=== PATIENT | female | born 1940 | race Caucasian/White ===

== ENCOUNTER 2017-11-07 03:41 | Inpatient (IN) | payer MEDICARE, OTHER ==
[2017-11-07] MEDS ORDERED: diphenhydrAMINE HCL 50 MG/ML VIAL IV ONE (04:04)
[2017-11-07] MEDS ORDERED: ALBUTEROL SULFATE 2.5 MG/0.5 ML VIAL.NEB IH ONE (04:11)
[2017-11-07 04:15] LABS: Hemoglobin 13.7 gm/dL (12.5-16.0); Mean Cell Volume 87.3 fl (78-100); Mean Corpuscular Hemoglobin 28.5 pg (27-31); Mean Corpuscular Hgb Conc 32.6 g/dl (32-36); Mean Platelet Volume 10.4 fl (6.0-9.5); Neutrophil # 6.9 K/mm3 (1.3-6.0); Neutrophil % 87.8 % (42-75.0); Platelet Count 151 K/mm3 (150-450); Red Blood Count 4.81 M/mm3 (4.2-5.4); Red Cell Distribution Width 13.6 % (11.5-14.0); White Blood Count 7.8 K/mm3 (4.0-10.5)
[2017-11-07] MEDS ORDERED: diphenhydrAMINE HCL 50 MG/ML VIAL ONE (04:16)
[2017-11-07] MEDS ORDERED: PROCHLORPERAZINE EDISYLATE 5 MG/ML VIAL ONE (04:21)
[2017-11-07] MEDS ORDERED: PROCHLORPERAZINE EDISYLATE 5 MG/ML VIAL IM ONE (04:21)
[2017-11-07 04:37] LABS: ALT 22 U/L (19-67); AST 17 U/L (0-48); Albumin * 3.7 gm/dl (3.4-5.0); Alkaline Phosphatase * 67 U/L (50-170); Anion Gap 16.1 mmol/L (6.8-13.8); BNP * 353 pg/mL (5-550); Bilirubin, Total 0.8 mg/dL (0.0-1.1); Blood Urea Nitrogen 10 mg/dL (3-23); CRP 0.3 mg/dL (0.0-0.9); Ca. Corrected For Albumin 8.6 mg/dL (8.4-10.2); Calcium * 8.7 mg/dL (7.9-10.9); Carbon Dioxide 26.6 mmol/L (24-32.6); Chloride 104 mmol/L (97-106); Glucose * 156 mg/dL (70-110); Potassium 2.7 mmol/L (3.4-4.6); Sodium 144 mmol/L (132-142); Total Protein 6.5 gm/dL (6.2-8.2); Troponin I Less than 0.017 ng/ml (0.00-0.10)
[2017-11-07] MEDS ORDERED: PROCHLORPERAZINE EDISYLATE 5 MG/ML VIAL IV ONE (05:50)
--- NOTE | 2017-11-07 05:55 | ERNOTE ---
Dyspnea - Date Date of Service: 11/07/17 - General Presenting Symptoms: shortness of breath, difficulty of breathing, wheezing Time Seen by Provider: 11/07/17 03:54 Source: patient Exam Limitations: no limitations - Immun/Allergies/Home Medications Immunizations: IMMUNIZATION HX Immunizations Up to Date No History of Influenza Vaccine Yes Hx Pneumococcal Vaccination Yes Allergies/Adverse Reactions: Allergies diphenhydramine [From Benadryl] Allergy (Severe, Verified 11/07/17 04:24) Other "Out of body experience" chlorpromazine HCl [From Thorazine] Allergy (Unknown, Verified 11/28/14 07:00) hydroxyzine HCl [From Vistaril] Allergy (Unknown, Verified 11/28/14 07:00) hydroxyzine pamoate [From Vistaril] Allergy (Unknown, Verified 11/28/14 07:00) ondansetron HCl [From Zofran (as hydrochloride)] Adverse Reaction (Severe, Verified 12/13/14 17:35) Headache Home Medications: HOME MEDICATIONS Atorvastatin Calcium [Lipitor] 40 mg PO DAILY 08/28/14 [Last Taken 09/06/14 08: 00] Multivitamin [Multi-Vitamin Daily] 1 each PO DAILY 08/28/14 [Last Taken 08:00 1 tab] Propranolol HCl [Inderal LA] 60 mg PO BID 08/28/14 [Last Taken 09/06/14 08:00] LORazepam [Ativan] 0.5 mg PO Q6H PRN 09/07/14 [Last Taken Unknown] Aspirin 325 mg PO DAILY 10/12/14 [Last Taken Unknown] Clopidogrel Bisulfate [Plavix] 75 mg PO DAILY 10/12/14 [Last Taken Unknown] Bisacodyl [Dulcolax] 5 mg PO DAILY 11/28/14 [Last Taken Unknown] Pantoprazole Sodium [Protonix] 40 mg PO DAILY 11/28/14 [Last Taken Unknown] Potassium 08/10/16 [Last Taken Unknown] - History of Present Illness Narrative: patient became sob yesterday with fever and cough Severity: moderate Treatment MIDDLE CARD TENDER: none Initiating event: Reports: upper resp illness Frequency of episodes: Reports: occassional episodes Modifying Factors - (Improves): Reports: rest Modifying Factors (Worsens): Reports: activity Associated Symptoms-Dyspnea: Reports: fever/chills, sweating, cough, wheezing, lightheadedness, weakness Prior Treatment: Reports: recently seen, treated by physician Review of Systems - Narrative Narrative: patient c/o weakness non productive cough - Review of Systems Constitutional: Present: See HPI, weakness, fatigue, malaise EYE: Present: no symptoms reported ENT: Present: nose congestion, nasal drainage Respiratory: Present: See HPI, shortness of breath, cough Cardiology: Present: no symptoms reported Gastrointestinal/Abdominal: Present: no symptoms reported Genitourinary: Present: no symptoms reported Musculoskeletal: Present: no symptoms reported Skin: Present: no symptoms reported Neurological: Present: no symptoms reported Endocrine: Present: no symptoms reported Hematologic/Lymphatic: Present: no symptoms reported Psych: Present: no symptoms reported All Other Systems: All systems neg except as marked - Narrative Narrative: unremarkable - Patient's Past Medical History Patient History - Medical: Anxiety, Arthritis, Depression, GERD, Other Patient History - Cardiac/Respiratory: COPD, Hyperlipidemia Patient History - Cancer: No Hx of Cancer Patient History - Surgical Procedures: Cholecystectomy, Hysterectomy Patient History - Other: None LMP (females 10-50): Menopausal - Family History Family History:: no untoward family reactions to anesthesia, no familial bleeding tendencies, no family history of clotting disorders, no family history of premature - Social History Living Situations: other Abuse History: No History of abuse Psych History: Hx of Anxiety Does anyone smoke in the home?: Yes Smoking Status: Current every day smoker Have you smoked in the past 12 months: Yes Do you dip or chew tobacco: No Patient requests Smoking Cessation Consult: No Initiate information on Smoking Cessation: No Alcohol Use: none Drug Use: none - Immunizations Immunizations Up to Date: No Hx Pneumococcal Vaccination: Yes History of Influenza Vaccine: Yes Physical Exam - Physical Exam General Appearance: Present: moderate distress, anxious Head Exam: Present: normal inspection, no evidence of injury Eye Exam: Normal inspection: bilateral, PERRL: bilateral, EOMI: bilateral Ears, Nose, Throat: Present: normal ENT inspection Neck: Present: normal inspection, nontender Respiratory: Present: respiratory distress, rales, rhonchi, wheezing Cardiovascular/Chest: Present: regular rate, rhythm, no murmur, normal peripheral pulses Peripheral Pulses: N=norm/S=strong/W=weak/B=bound/A=absent: Carotid (R): Normal , Carotid (L): Normal, Radial (R): Normal, Radial (L): Normal, Femoral (R): Normal, Femoral (L): Normal, Dorsalis-pedis (R): Normal, Dorsalis-pedis (L): Normal Gastrointestinal/Abdominal: Present: normal bowel sounds, nontender, nondistended, soft, no organomegaly Back Exam: Present: normal inspection, normal range of motion, no CVA tenderness , no vertebral tenderness Extremity Exam: Present: normal inspection, non-tender, normal range of motion, no edema Neurological Exam: Present: alert, oriented, normal mood/affect, no motor/ sensory deficits DTR: N=norm/NB=norm/brisk/A=abs/DD=dull/dimin/HC=hyperactive: Bicep (R): Normal , Bicep (L): Normal, Tricep (R): Normal, Tricep (L): Normal, Knee (R): Normal, Knee (L): Normal, Ankle (R): Normal, Ankle (L): Normal Skin Exam: Present: normal color, warm/dry Lymphatic Exam: Present: no adenopathy ED Progress - Date and Time Seen: Date and Time: 11/07/17 05:53 condition unchanged - Results and Orders Patient's Lab Results:: I have reviewed the patient's lab results. - Vital Signs Patient's Vital Signs:: I have reviewed the patient's vital signs. Vital Signs: Vital Signs 11/07/17 03:44 Temperature 38.5 C H Pulse Rate 95 Respiratory 18 Rate Blood Pressure 153/71 O2 Sat by Pulse 93 Oximetry - EKG EKG: NSR EKG read: Interp. by me - X-Ray X-Ray #1 X-Ray: chest - lrl pneummonia Interpretation: Interp. by me - Progress/Reassessment Chief Complaint: Dyspnea Progress:: Unchanged - Transfer of Care Expected Disposition: Admit Plan - Plan Plan: to be admitted Departure Clinical Impression: Pneumonia - Departure Disposition: Short Term Hospital w/Plan re Condition: Poor Referrals: Lucio Garza MD [Primary Care Provider] -
[2017-11-07] MEDS: AZITHROMYCIN 500 MG in DEXTROSE 5 % IN WATER 250 ML IV SCH ×2 (06:54)
[2017-11-07] MEDS ORDERED: LORazepam 0.5 MG TABLET PO PRN (08:51)
[2017-11-07] MEDS ORDERED: POTASSIUM CHLORIDE 20 MEQ TABLET.SA PO ONE (08:51)
[2017-11-07] MEDS ORDERED: DILTIAZEM HCL 5 MG/ML VIAL IV ONE ×2 (09:53→10:33)
[2017-11-07] MEDS ORDERED: NORMAL SALINE 1,000 ML IV ONE ×3 (09:54→16:47)
[2017-11-07] MEDS ORDERED: DILTIAZEM HCL 30 MG TABLET PO SCH (10:45)
[2017-11-07] MEDS ORDERED: KETOROLAC TROMETHAMINE 30 MG/ML VIAL IV ONE (11:03)
[2017-11-07 11:18] LABS: TSH * 0.564 uIU/mL (0.358-3.74); Troponin I 0.072 ng/ml (0.00-0.10)
[2017-11-07] MEDS ORDERED: DILTIAZEM HCL 125 MG in DEXTROSE 5 % IN WATER 100 ML IV PRN ×2 (12:28)
[2017-11-07] MEDS ORDERED: LORazepam 2 MG/ML DISP.SYRIN IV ONE (12:29)
[2017-11-07] MEDS ORDERED: LORazepam 2 MG/ML DISP.SYRIN ONE (12:52)
[2017-11-07] MEDS ORDERED: oxyCODONE HCL/ACETAMINOPHEN 1 TAB TABLET PO PRN (13:48)
[2017-11-07] MEDS ORDERED: PROPRANOLOL HCL 60 MG CAPSULE.SA PO SCH (14:00)
[2017-11-07] MEDS: CLOPIDOGREL BISULFATE 75 MG TABLET PO SCH (14:18)
[2017-11-07] MEDS: PANTOPRAZOLE SODIUM 40 MG TABLET.EC PO SCH (14:18)
[2017-11-07] MEDS: PROPRANOLOL HCL 60 MG CAPSULE.SA PO SCH (14:18)
[2017-11-07] MEDS: SENNOSIDES/DOCUSATE SODIUM 1 TAB TABLET PO SCH ×2 (14:19→20:08)
[2017-11-07] MEDS ORDERED: ALBUTEROL SULFATE/IPRATROPIUM 3 ML NEBU IH PRN (15:15)
[2017-11-07] MEDS ORDERED: ALBUTEROL SULFATE/IPRATROPIUM 3 ML NEBU IH ONE (15:15)
[2017-11-07] MEDS ORDERED: NORMAL SALINE 1,000 ML IV PRN (18:26)
[2017-11-07] MEDS ORDERED: NORMAL SALINE 500 ML IV ONE ×2 (19:52→21:10)
[2017-11-07] MEDS ORDERED: LEVALBUTEROL HCL 1.25 MG/3 ML AMPUL IH ONE (19:58)
[2017-11-07] MEDS: ATORVASTATIN CALCIUM 40 MG TABLET PO SCH (20:07)
[2017-11-07] MEDS: oxyCODONE HCL/ACETAMINOPHEN 1 TAB TABLET PO PRN (20:08)
[2017-11-07] MEDS: LEVALBUTEROL HCL 1.25 MG/3 ML AMPUL IH SCH ×2 (20:13→22:37)
[2017-11-07] MEDS ORDERED: LORazepam 2 MG/ML DISP.SYRIN IV SCH (21:00)
[2017-11-07] MEDS ORDERED: NORMAL SALINE 500 ML IV PRN (22:28)
--- NOTE | 2017-11-07 23:46 | HP ---
Chief Complaint - Chief Complaint Date of Service: 11/07/17 Time of Service: 12:12 Chief Complaint: Shortness of breath, cough History of Present Illness: Donna is a 77 yo female with a PMH of COPD who for the past week has had increased shortness of breath and productive sputum cough. She has became weaker, air hungry, and more anxious. Today she presented to the [facility] ER where chest xray showed right middle lobe pneumonia. She denies recent travel or known sick contacts. After being admitted to the floor she was noted to become tachycardiac and go into atrial fibrillation with RVR. - Patient's Past Medical History Patient History - Medical: Anxiety, Arthritis, Depression, GERD Patient History - Cardiac/Respiratory: COPD, Hyperlipidemia Patient History - Cancer: No Hx of Cancer Patient History - Surgical Procedures: Cholecystectomy, Hysterectomy Patient History - Other: None LMP (females 10-50): Menopausal - Family History Family History:: no untoward family reactions to anesthesia, no familial bleeding tendencies, no family history of clotting disorders, no family history of premature - Family History Mother Family History - Medical: , No pertinent hx Family History - Cancer: No pertinent family hx Father Family History - Medical: , No pertinent hx Family History - Cardiac/Respiratory: No pertinent hx Family History - Cancer: Kidney, Prostate - Social History Living Situations: home Abuse History: No History of abuse Psych History: Hx of Anxiety Does anyone smoke in the home?: Yes Smoking Status: Current every day smoker Have you smoked in the past 12 months: Yes Do you dip or chew tobacco: No Patient requests Smoking Cessation Consult: No Initiate information on Smoking Cessation: No Alcohol Use: none Drug Use: none - Immunizations Immunizations Up to Date: No Hx Pneumococcal Vaccination: Yes History of Influenza Vaccine: Yes Review Of Systems (GEN) - Review of Systems Generalized/Overall Review: Present: Weakness, Chills, Malaise, Fatigue. Absent : Fever EENTM: Present: No Symptoms Reported Respiratory: Present: Cough, Shortness of Breath, Wheezing Cardiac: Present: Chest Pain Abdominal: Absent: Nausea, Vomiting Genitourinary: Present: No Symptoms Reported Musculoskeletal: Present: No Symptoms Reported Neurological: Present: No Symptoms Reported Skin: Present: No Symptoms Reported Endocrine: Present: No Symptoms Reported Allergies/Adverse Reactions: Allergies Allergy/AdvReac Type Severity Reaction Status Date / Time diphenhydramine Allergy Severe Other Verified 11/07/17 07:50 [From Benadryl] chlorpromazine HCl Allergy Unknown Verified 11/07/17 07:50 [From Thorazine] hydroxyzine HCl Allergy Unknown Verified 11/07/17 07:50 [From Vistaril] hydroxyzine pamoate Allergy Unknown Verified 11/07/17 07:50 [From Vistaril] ondansetron HCl AdvReac Severe Headache Verified 11/07/17 07:50 [From Zofran (as hydrochloride)] Home Medications: HOME MEDICATIONS Atorvastatin Calcium [Lipitor] 40 mg PO DAILY 08/28/14 [Last Taken 09/06/14 08: 00] Multivitamin [Multi-Vitamin Daily] 1 each PO DAILY 08/28/14 [Last Taken 08:00 1 tab] LORazepam [Ativan] 0.5 mg PO Q3H PRN 09/07/14 [Last Taken Unknown] Aspirin 325 mg PO DAILY 10/12/14 [Last Taken Unknown] Clopidogrel Bisulfate [Plavix] 75 mg PO DAILY 10/12/14 [Last Taken Unknown] Bisacodyl [Dulcolax] 5 mg PO DAILY 11/28/14 [Last Taken Unknown] Pantoprazole Sodium [Protonix] 40 mg PO DAILY 11/28/14 [Last Taken Unknown] Propranolol HCl 60 mg PO BID 11/09/17 [Last Taken Unknown] Exam - Exam Vital Signs: Vital Signs - Last Taken Temp 36.3 C L 11/07/17 22:28 Pulse 61 11/07/17 22:37 Resp 20 11/07/17 22:37 BP 71/48 11/07/17 22:28 Pulse Ox 94 11/07/17 22:37 Constitutional: Present: Alert, Oriented x3, Cooperative ENT Exam: Present: hearing grossly normal Eye Exam: bilateral eye: normal inspection Respiratory: Present: decreased breath sounds, wheezing Cardiovascular/Chest: Present: no murmur, tachycardia, irregularly irregular Abdomen: Present: Normal bowel sounds, soft, nontender, nondistended Skin Exam: Present: normal color, warm/dry, no cyanosis Neurologic: Present: alert, oriented x 3 Thoughts: Present: other - anxious Diagnostic Studies: Abnormal Lab Results 11/07/17 Range/Units 20:10 pO2 52.6 L (83.0-108.0) mmHg HCO3 17.9 L (21.0-28.0) mmol/L Base Excess -8.1 L (-2.0-3.0) mmol/L ABG pH 7.29 L (7.35-7.45) ABG O2 Sat (Measured) 83.4 L (94.0-98.0) % Laboratory Results WBC 7.8 K/mm3 (4.0-10.5) 11/07/17 04:00 RBC 4.81 M/mm3 (4.2-5.4) 11/07/17 04:00 Hgb 13.7 gm/dL (12.5-16.0) 11/07/17 04:00 Hct 42.0 % (37.0-47.0) 11/07/17 04:00 MCV 87.3 fl (78-100) 11/07/17 04:00 MCH 28.5 pg (27-31) 11/07/17 04:00 MCHC 32.6 g/dl (32-36) 11/07/17 04:00 RDW 13.6 % (11.5-14.0) 11/07/17 04:00 Plt Count 151 K/mm3 (150-450) 11/07/17 04:00 MPV 10.4 fl (6.0-9.5) H 11/07/17 04:00 Immature Gran % (Auto) 0.40 % (0.001-0.429) 11/07/17 04:00 Immature Gran # (Auto) 0.03 K/mm3 (0.000-0.0310) 11/07/17 04:00 Neutrophils % 87.8 % (42-75.0) H 11/07/17 04:00 Lymphocytes % 7.2 % (20-51) L 11/07/17 04:00 Monocytes % 3.5 % (0.0-9) 11/07/17 04:00 Eosinophils % 1.0 % (0.0-3.0) 11/07/17 04:00 Basophils % 0.1 % (0.0-1.0) 11/07/17 04:00 Nucleated RBC % 0.0 k/mm3 (0-1) 11/07/17 04:00 Neutrophils # 6.9 K/mm3 (1.3-6.0) H 11/07/17 04:00 Lymphocytes # 0.6 k/mm3 (1.5-3.5) L 11/07/17 04:00 Monocytes # 0.3 k/mm3 (0.0-1.0) 11/07/17 04:00 Eosinophils # 0.1 k/mm3 (0.0-0.7) 11/07/17 04:00 Absolute Basophils 0.0 k/mm3 (0.0-0.1) 11/07/17 04:00 pCO2 38.4 mmHg (32.0-45.0) 11/07/17 20:10 pO2 52.6 mmHg (83.0-108.0) L 11/07/17 20:10 HCO3 17.9 mmol/L (21.0-28.0) L 11/07/17 20:10 Total CO2 19.1 mmol/L (19.0-24.0) 11/07/17 20:10 Base Excess -8.1 mmol/L (-2.0-3.0) L 11/07/17 20:10 ABG pH 7.29 (7.35-7.45) L 11/07/17 20:10 ABG O2 Sat (Measured) 83.4 % (94.0-98.0) L 11/07/17 20:10 Sodium 144 mmol/L (132-142) H 11/07/17 04:00 Plasma Sodium 145 mmol/L (130-142) H 11/07/17 04:00 Potassium 2.7 mmol/L (3.4-4.6) L 11/07/17 04:00 Chloride 104 mmol/L (97-106) 11/07/17 04:00 Carbon Dioxide 26.6 mmol/L (24-32.6) 11/07/17 04:00 Anion Gap 16.1 mmol/L (6.8-13.8) H 11/07/17 04:00 BUN 10 mg/dL (3-23) 11/07/17 04:00 Creatinine 0.77 mg/dL (0.4-1.4) 11/07/17 04:00 Est GFR (Non-Af Amer) 77 mL/min (60-130) 11/07/17 04:00 BUN/Creatinine Ratio 13.0 (9.0-21.6) 11/07/17 04:00 Random Glucose 156 mg/dL (70-110) H 11/07/17 04:00 Lactic Acid, Venous 1.0 mmol/L (0.4-1.9) 11/07/17 04:00 Calcium 8.7 mg/dL (7.9-10.9) 11/07/17 04:00 Calcium Adj for Albumin 8.6 mg/dL (8.4-10.2) 11/07/17 04:00 Total Bilirubin 0.8 mg/dL (0.0-1.1) 11/07/17 04:00 AST 17 U/L (0-48) 11/07/17 04:00 ALT 22 U/L (19-67) 11/07/17 04:00 Alkaline Phosphatase 67 U/L (50-170) 11/07/17 04:00 Troponin I 0.072 ng/ml (0.00-0.10) 11/07/17 10:50 C-Reactive Prot, Quant 0.3 mg/dL (0.0-0.9) 11/07/17 04:00 B-Natriuretic Peptide 353 pg/mL (5-550) 11/07/17 04:00 Total Protein 6.5 gm/dL (6.2-8.2) 11/07/17 04:00 Albumin 3.7 gm/dl (3.4-5.0) 11/07/17 04:00 Procalcitonin 0.06 ng/mL (0.05-0.50) 11/07/17 04:00 TSH 0.564 uIU/mL (0.358-3.74) 11/07/17 10:50 Influenza Type A Ag Negative (NEGATIVE) 11/07/17 04:59 Influenza Type B Ag Negative (NEGATIVE) 11/07/17 04:59 Assessment/Plan - Narrative Narrative: Donna is a 77 yo female with acute respiratory failure secondary to Right middle lobe community acquired pneumonia with COPD exacerbation. She is currently using oxygen via NC at 2lpm. Will treat with rocephin and azithromycin. A lot of patient's dyspnea appears to be anxiety. Will give anxiolytics as needed. Will hold off on prednisone at this time as this may worsen the anxiety. While on the floor patient went into atrial fibrillation with RVR. This is new and felt to be due to pneumonia. She will be given Diltiazem 20mg IV and started on oral diltiazem. May need to continue diltiazem drip and move patient to SCU. Will give Normal saline fluid bolus. - Assessment/Plan (1) Acute respiratory failure with hypoxemia Problem: Acute (2) Atrial fibrillation with RVR Problem: Resolved (3) Pneumonia Problem: Acute (4) COPD exacerbation Problem: Acute
[2017-11-08] MEDS ORDERED: POTASSIUM CHLORIDE 20 MEQ TABLET.SA PO ONE (00:38)
[2017-11-08] MEDS: LORazepam 2 MG/ML DISP.SYRIN IV PRN ×6 (01:03→19:32)
[2017-11-08] MEDS ORDERED: NORMAL SALINE 1,000 ML IV ONE ×2 (01:25)
[2017-11-08] MEDS: LEVALBUTEROL HCL 1.25 MG/3 ML AMPUL IH SCH ×7 (02:10→22:13)
[2017-11-08] MEDS: oxyCODONE HCL/ACETAMINOPHEN 1 TAB TABLET PO PRN ×2 (02:29→21:51)
[2017-11-08] MEDS: NORMAL SALINE 1,000 ML IV PRN (03:07)
--- NOTE | 2017-11-08 05:09 | PN ---
Subjective - Date and Time Seen Date: 11/08/17 Time: 05:30 Subjective Narrative: Pt examined this am. She is very restless and wants to get out of bed. Was transferred to SCU due to A -fib with RVR which could not respond to Diltiazem IVP and needed to be on drip. She was able to convert to NSR, but then became hypotensive. BPs persistently remained in the 60-70s/40s and has required nearly 5.5 L of NS to bring her BP to low 100/50s. O2 titrated from 50-40% fio2 and has been able to keep Pox at 92-95%. Has had urinary output of 400ml with 3.5 L of IVF. Objective - Vitals Vitals: Last Vital Signs Temp 36.4 C L 11/08/17 03:47 Pulse 68 11/08/17 03:47 Resp 22 H 11/08/17 03:47 BP 104/57 11/08/17 03:47 Pulse Ox 97 11/08/17 03:47 - Abnormal Lab Findings Abnormal Lab Findings: Abnormal Lab Results 11/07/17 Range/Units 20:10 pO2 52.6 L (83.0-108.0) mmHg HCO3 17.9 L (21.0-28.0) mmol/L Base Excess -8.1 L (-2.0-3.0) mmol/L ABG pH 7.29 L (7.35-7.45) ABG O2 Sat (Measured) 83.4 L (94.0-98.0) % - Exam Constitutional: Present: Alert, Oriented x3, Other - Restless, Elderly ENT Exam: Present: normal ENT inspection Neck: Present: non-tender, full range of motion, supple Breasts: Present: Exam deferred Respiratory: Present: decreased breath sounds, No rales, No wheezing Cardiovascular/Chest: Present: normal peripheral pulses, regular rate, rhythm, no chest tenderness Abdomen: Present: Normal bowel sounds, soft, nontender /Rectal: Present: Exam deferred Extremity: Present: normal range of motion, non-tender, normal inspection Skin Exam: Present: warm/dry, no cyanosis Lymphatic: Present: no adenopathy Neurologic: Present: no motor/sensory deficits, alert, oriented x 3 Appearance: Present: appropriate appearance, impaired insight Eye contact: Present: compulsive Thoughts: Present: no apparent hallucination, incoherent Cauti Physician Documentation - Urinary Catheter Management Urethral (Mathews) Date of Insertion: 11/07/17 Time of Insertion: 23:50 Assessment/Plan - Problems/Diagnosis (1) Acute respiratory failure with hypoxemia Problem: Acute Narrative: On DOA at the ED, pt was noted to have desaturations to 87-89% requiring oxygen supplementation. ABG while on the floor showed Hypoxemi with PO2 of 52 and O2 Sat of 83.4 on 50 Venti mask. Attempted BIPAP to assist in work of breathing/ ventilation but pt was unable to comply and refused. Left on the Venti mask. Started on scheduled Xopenex treatments. Wean off oxygen as able. Laboratory Tests 11/07/17 20:10 pCO2 38.4 pO2 52.6 L HCO3 17.9 L Total CO2 19.1 Base Excess -8.1 L ABG pH 7.29 L ABG O2 Sat (Measured) 83.4 L (2) Pneumonia Problem: Acute Qualifiers: Laterality: right Lung location: middle lobe of lung Narrative: CXR shows RML consilidation consistent with Pneumonia. Started on Rocephin and Azithromycin. Push cornet q 2 hrs, encourage ambulation. CBC in am (3) COPD exacerbation Problem: Acute Narrative: Has long standing hx of cigarete smoking. diagnosis not known at the time of presentation to our facility, but findings on CXR shows Bilateral Hyperinflation of the lungs- one of the diagnostic of COPD. May likely need home O2 at discharge. Is on Xopenex. (4) Hypotension Problem: Acute Narrative: Hypotension was likely due to iantrogenic complication from Diltiazem. Has required nearly 6 L of IVF due to persistent BPs' of 70/40s. Now in the 90/50s. Mathews inserted for accurate I/O due to hemodynamic instability requiring IV boluses - Urine output 400ml only. (5) Hypokalemia Problem: Acute Narrative: Given K replacment of 80 MeQ. BMP in am. (6) Atrial fibrillation with RVR Problem: Acute Narrative: Went into Afib with RVR in the 180s and required IVP diltiazem, and eventually Diltiazem gtt. She converted to NSR and drip stopped due to hypotension. (7) HLD (hyperlipidemia) Problem: Chronic
[2017-11-08] MEDS: cefTRIAXone SODIUM 1,000 MG in DEXTROSE 5 % IN WATER 50 ML IV SCH ×2 (05:15)
[2017-11-08 05:19] LABS: Hematocrit 35.8 % (37.0-47.0); Hemoglobin 11.5 gm/dL (12.5-16.0); Mean Cell Volume 91.3 fl (78-100); Mean Corpuscular Hemoglobin 29.3 pg (27-31); Mean Corpuscular Hgb Conc 32.1 g/dl (32-36); Mean Platelet Volume 10.6 fl (6.0-9.5); Platelet Count 139 K/mm3 (150-450); Red Blood Count 3.92 M/mm3 (4.2-5.4); Red Cell Distribution Width 14.6 % (11.5-14.0); White Blood Count 12.7 K/mm3 (4.0-10.5)
[2017-11-08 05:23] LABS: Total Cells Counted 100
[2017-11-08 05:27] LABS: Anion Gap 14.4 mmol/L (6.8-13.8); Carbon Dioxide 22.4 mmol/L (24-32.6); Magnesium 1.4 mg/dL (1.2-2.8); Potassium 3.8 mmol/L (3.4-4.6)
[2017-11-08 05:34] LABS: Band 20 % (0-2.0); Lymphocyte 5 % (20-51); Microcytosis Trace; Monocyte 6 % (0-9); Neutrophil 69 % (42-75); Neutrophil # 8.8 K/mm3 (1.3-6.0); Platelet Estimate Decreased (NORMAL)
[2017-11-08] MEDS: AZITHROMYCIN 500 MG in DEXTROSE 5 % IN WATER 250 ML IV SCH ×2 (05:50)
[2017-11-08] MEDS: PANTOPRAZOLE SODIUM 40 MG TABLET.EC PO SCH (07:03)
[2017-11-08] MEDS: PROPRANOLOL HCL 60 MG CAPSULE.SA PO SCH ×2 (09:08→12:51)
[2017-11-08] MEDS: MULTIVITAMINS 1 CAP CAPSULE PO SCH (09:11)
[2017-11-08] MEDS: ASPIRIN 325 MG TABLET.DR PO SCH (09:11)
[2017-11-08] MEDS: CLOPIDOGREL BISULFATE 75 MG TABLET PO SCH (09:12)
[2017-11-08] MEDS ORDERED: FUROSEMIDE 10 MG/ML VIAL ONE (09:26)
[2017-11-08] MEDS ORDERED: FUROSEMIDE 10 MG/ML VIAL IV ONE (09:30)
[2017-11-08] MEDS ORDERED: ACETAMINOPHEN 325 MG TABLET PO PRN (13:10)
[2017-11-08] MEDS ORDERED: DILTIAZEM HCL 5 MG/ML VIAL IV ONE (16:37)
[2017-11-08] MEDS: DILTIAZEM HCL 30 MG TABLET PO SCH (16:59)
[2017-11-08] MEDS: ATORVASTATIN CALCIUM 40 MG TABLET PO SCH (20:00)
[2017-11-08] MEDS: SENNOSIDES/DOCUSATE SODIUM 1 TAB TABLET PO SCH (20:00)
[2017-11-08] MEDS: PROPRANOLOL HCL 20 MG TABLET PO SCH (20:00)
[2017-11-09] MEDS: DILTIAZEM HCL 30 MG TABLET PO SCH ×3 (00:33→16:28)
[2017-11-09] MEDS: NORMAL SALINE 1,000 ML IV PRN (00:35)
[2017-11-09] MEDS: LEVALBUTEROL HCL 1.25 MG/3 ML AMPUL IH SCH ×6 (02:19→22:27)
[2017-11-09] MEDS: LORazepam 2 MG/ML DISP.SYRIN IV PRN ×3 (04:18→15:37)
[2017-11-09 04:59] LABS: Hematocrit 35.4 % (37.0-47.0); Hemoglobin 11.4 gm/dL (12.5-16.0); Mean Cell Volume 90.8 fl (78-100); Mean Corpuscular Hemoglobin 29.2 pg (27-31); Mean Corpuscular Hgb Conc 32.2 g/dl (32-36); Mean Platelet Volume 10.9 fl (6.0-9.5); Platelet Count 143 K/mm3 (150-450); Red Cell Distribution Width 14.6 % (11.5-14.0); White Blood Count 12.5 K/mm3 (4.0-10.5)
[2017-11-09] MEDS: cefTRIAXone SODIUM 1,000 MG in DEXTROSE 5 % IN WATER 50 ML IV SCH ×2 (05:00)
[2017-11-09 05:06] LABS: Total Cells Counted 100
[2017-11-09 05:09] LABS: Anion Gap 14.7 mmol/L (6.8-13.8); BUN/Creatinine Ratio 23.6 (9.0-21.6); Band 12 % (0-2.0); Calcium * 7.7 mg/dL (7.9-10.9); Carbon Dioxide 20.6 mmol/L (24-32.6); Estimated Creat Clear 49.8; Hypersegmented Polys 1+; Lymphocyte 9 % (20-51); Monocyte 5 % (0-9); Neutrophil 74 % (42-75); Neutrophil # 9.3 K/mm3 (1.3-6.0); Platelet Estimate Normal (NORMAL); Potassium 3.3 mmol/L (3.4-4.6); Rouleaux 1+; Toxic Granulation 1+
[2017-11-09] MEDS: AZITHROMYCIN 500 MG in DEXTROSE 5 % IN WATER 250 ML IV SCH ×2 (05:32)
--- NOTE | 2017-11-09 06:35 | PN ---
Subjective - Date and Time Seen Date: 11/09/17 Time: 06:31 Subjective Narrative: Pt seen this am. Nursing report restless requiring Ativan x 2. Has remained on NC 4 L all night and was in Afib with HR < 100. No other acute events overnight. Objective - Vitals Vitals: Last Vital Signs Temp 36.9 C 11/09/17 03:00 Pulse 125 H 11/09/17 04:05 Resp 22 H 11/09/17 03:00 BP 116/52 11/09/17 03:00 Pulse Ox 90 11/09/17 03:00 - Abnormal Lab Findings Abnormal Lab Findings: Abnormal Lab Results 11/09/17 11/09/17 Range/Units 04:58 04:58 WBC 12.5 H (4.0-10.5) K/mm3 RBC 3.90 L (4.2-5.4) M/mm3 Hgb 11.4 L (12.5-16.0) gm/dL Hct 35.4 L (37.0-47.0) % RDW 14.6 H (11.5-14.0) % Plt Count 143 L (150-450) K/mm3 MPV 10.9 H (6.0-9.5) fl Band Neuts % (Manual) 12 H (0-2.0) % Lymphocytes % (Manual) 9 L (20-51) % Neutrophils # (Manual) 9.3 H (1.3-6.0) K/mm3 Lymphocytes # (Manual) 1.1 L (1.5-3.5) k/mm3 Sodium 143 H (132-142) mmol/L Plasma Sodium 143 H (130-142) mmol/L Potassium 3.3 L (3.4-4.6) mmol/L Chloride 111 H (97-106) mmol/L Carbon Dioxide 20.6 L (24-32.6) mmol/L Anion Gap 14.7 H (6.8-13.8) mmol/L BUN/Creatinine Ratio 23.6 H (9.0-21.6) Calcium 7.7 L (7.9-10.9) mg/dL - Exam Constitutional: Present: Alert, Oriented x3, Mild distress ENT Exam: Present: normal ENT inspection Neck: Present: non-tender, full range of motion, supple Breasts: Present: Exam deferred Respiratory: Present: decreased breath sounds, rhonchi, wheezing, inspiration Cardiovascular/Chest: Present: normal peripheral pulses, irregularly irregular Abdomen: Present: Normal bowel sounds, soft, nontender /Rectal: Present: Exam deferred Extremity: Present: normal range of motion, non-tender, normal inspection, no pedal edema Skin Exam: Present: warm/dry, no cyanosis Neurologic: Present: no motor/sensory deficits, alert Appearance: Present: impaired insight Eye contact: Present: decreased rate of speech, compulsive. Absent: good eye contact Thoughts: Present: incoherent Cauti Physician Documentation - Urinary Catheter Management Urethral (Mathews) Date of Insertion: 11/07/17 Time of Insertion: 23:50 Assessment/Plan - Problems/Diagnosis (1) Acute respiratory failure with hypoxemia Problem: Acute Narrative: On DOA at the ED, pt was noted to have desaturations to 87-89% requiring oxygen supplementation. ABG while on the floor showed Hypoxemi with PO2 of 52 and O2 Sat of 83.4 on 50 Venti mask. Attempted BIPAP to assist in work of breathing/ ventilation but pt was unable to comply and refused. Left on the Venti mask. Started on scheduled Xopenex treatments. Wean off oxygen as able. Laboratory Tests 11/07/17 20:10 pCO2 38.4 pO2 52.6 L HCO3 17.9 L Total CO2 19.1 Base Excess -8.1 L ABG pH 7.29 L ABG O2 Sat (Measured) 83.4 L 11/08- pt and daughter who is POA do no want ABGs to be checked incase there was suspicion of Hypercapnea as pt CANNOT tolerate the BIPAP. If the moment came to be worsening resp. failure, they are okay with comfort cares. (2) Pneumonia Problem: Acute Qualifiers: Laterality: right Lung location: middle lobe of lung Narrative: CXR shows RML consilidation consistent with Pneumonia. Started on Rocephin and Azithromycin. Push cornet q 2 hrs, encourage ambulation. CBC in am Laboratory Tests 11/08/17 11/09/17 05:10 04:58 WBC 12.7 H D 12.5 H (3) COPD exacerbation Problem: Acute (4) New onset a-fib Problem: Acute Narrative: 11/07 Went into Afib with RVR in the 180s and required IVP diltiazem, and eventually Diltiazem gtt. She converted to NSR and drip stopped due to hypotension. 11/08-A-fib with RVR again and required IVP diltiazem. Started on Oral diltiazem 30 mg q 8 h. was able to maintain HR in < 100 but remained in A-fib. She will need an Echocardiogram to assess to any valvular & pericardial disease. She will need thromboembolic prophylaxis- Has a CHADS2 score of 1 point which carries a 2.8 % risk if no coumadin. Will cover with Heparin for now for VTE prophylaxis until treatment option are discussed. (5) Hypotension Problem: Resolved Narrative: Hypotension was likely due to iantrogenic complication from Diltiazem. Has required nearly 6 L of IVF due to persistent BPs' of 70/40s. Now in the 90/50s. Mathews inserted for accurate I/O due to hemodynamic instability requiring IV boluses - Urine output 400ml only. 11/09- Has been able to maintain BP above SBP> 100s (6) Hypokalemia Problem: Acute Narrative: will replace with 40 this am. (7) Atrial fibrillation with RVR Problem: Resolved (8) HLD (hyperlipidemia) Problem: Chronic
[2017-11-09] MEDS ORDERED: POTASSIUM CHLORIDE 20 MEQ TABLET.SA PO ONE (06:45)
[2017-11-09] MEDS ORDERED: HEPARIN SODIUM,PORCINE 5,000 UNITS/ML VIAL SC SCH (06:45)
[2017-11-09] MEDS: PANTOPRAZOLE SODIUM 40 MG TABLET.EC PO SCH (07:35)
[2017-11-09] MEDS: PROPRANOLOL HCL 20 MG TABLET PO SCH ×2 (09:36→20:14)
[2017-11-09] MEDS: MULTIVITAMINS 1 CAP CAPSULE PO SCH (09:37)
[2017-11-09] MEDS: CLOPIDOGREL BISULFATE 75 MG TABLET PO SCH (09:37)
[2017-11-09] MEDS: ASPIRIN 325 MG TABLET.DR PO SCH (09:38)
[2017-11-09] MEDS: oxyCODONE HCL/ACETAMINOPHEN 1 TAB TABLET PO PRN (13:46)
[2017-11-09] MEDS ORDERED: ALBUTEROL SULFATE/IPRATROPIUM 3 ML NEBU IH PRN (15:26)
[2017-11-09] MEDS ORDERED: ACETAMINOPHEN 325 MG TABLET PO PRN (15:26)
[2017-11-09] MEDS: HEPARIN SODIUM,PORCINE 5,000 UNITS/ML VIAL SC SCH (20:14)
[2017-11-09] MEDS: SENNOSIDES/DOCUSATE SODIUM 1 TAB TABLET PO SCH (20:15)
[2017-11-09] MEDS: ATORVASTATIN CALCIUM 40 MG TABLET PO SCH (20:15)
[2017-11-10] MEDS: DILTIAZEM HCL 30 MG TABLET PO SCH ×3 (00:58→16:35)
[2017-11-10] MEDS: oxyCODONE HCL/ACETAMINOPHEN 1 TAB TABLET PO PRN ×4 (01:04→22:53)
[2017-11-10] MEDS: NORMAL SALINE 1,000 ML IV PRN (02:15)
[2017-11-10] MEDS: LEVALBUTEROL HCL 1.25 MG/3 ML AMPUL IH SCH ×6 (02:41→21:59)
[2017-11-10] MEDS: AZITHROMYCIN 500 MG in DEXTROSE 5 % IN WATER 250 ML IV SCH ×2 (05:41)
[2017-11-10] MEDS: cefTRIAXone SODIUM 1,000 MG in DEXTROSE 5 % IN WATER 50 ML IV SCH ×4 (05:42→06:05)
[2017-11-10 06:01] LABS: Hematocrit 34.4 % (37.0-47.0); Mean Cell Volume 89.8 fl (78-100); Mean Corpuscular Hemoglobin 28.7 pg (27-31); Mean Platelet Volume 11.4 fl (6.0-9.5); Neutrophil # 11.5 K/mm3 (1.3-6.0); Neutrophil % 86.8 % (42-75.0); Platelet Count 146 K/mm3 (150-450); Red Blood Count 3.83 M/mm3 (4.2-5.4); Red Cell Distribution Width 14.8 % (11.5-14.0); White Blood Count 13.3 K/mm3 (4.0-10.5)
[2017-11-10 06:19] LABS: Albumin * 2.4 gm/dl (3.4-5.0); Anion Gap 13.7 mmol/L (6.8-13.8); BUN/Creatinine Ratio 23.3 (9.0-21.6); Bilirubin, Total 0.4 mg/dL (0.0-1.1); Ca. Corrected For Albumin 9.4 mg/dL (8.4-10.2); Calcium * 8.4 mg/dL (7.9-10.9); Carbon Dioxide 23.1 mmol/L (24-32.6); Potassium 3.8 mmol/L (3.4-4.6); Total Protein 5.6 gm/dL (6.2-8.2)
[2017-11-10] MEDS: PANTOPRAZOLE SODIUM 40 MG TABLET.EC PO SCH (07:24)
[2017-11-10] MEDS: HEPARIN SODIUM,PORCINE 5,000 UNITS/ML VIAL SC SCH ×2 (07:26→20:40)
[2017-11-10] MEDS: PIPERACILLIN SODIUM/TAZOBACTAM 3.375 GM in DEXTROSE 5 % IN WATER 100 ML IV SCH ×4 (09:31→16:34)
[2017-11-10] MEDS: PROPRANOLOL HCL 20 MG TABLET PO SCH ×2 (09:45→20:40)
[2017-11-10] MEDS: CLOPIDOGREL BISULFATE 75 MG TABLET PO SCH (09:46)
[2017-11-10] MEDS: ASPIRIN 325 MG TABLET.DR PO SCH (09:47)
[2017-11-10] MEDS: MULTIVITAMINS 1 CAP CAPSULE PO SCH (09:47)
[2017-11-10] MEDS: ATORVASTATIN CALCIUM 40 MG TABLET PO SCH (20:41)
[2017-11-10] MEDS: SENNOSIDES/DOCUSATE SODIUM 1 TAB TABLET PO SCH (20:41)
--- NOTE | 2017-11-10 23:50 | PN ---
Subjective - Date and Time Seen Date: 11/10/17 Time: 16:58 Subjective Narrative: Donna remains anxious and dyspneic. No fever, chills, nausea, or vomiting. Objective - Vitals Vitals: Last Vital Signs Temp 36.5 C 11/10/17 19:00 Pulse 60 11/10/17 22:09 Resp 22 H 11/10/17 22:09 BP 115/69 11/10/17 20:40 Pulse Ox 94 11/10/17 21:59 - Abnormal Lab Findings Abnormal Lab Findings: Abnormal Lab Results 11/10/17 11/10/17 Range/Units 05:57 05:57 WBC 13.3 H (4.0-10.5) K/mm3 RBC 3.83 L (4.2-5.4) M/mm3 Hgb 11.0 L (12.5-16.0) gm/dL Hct 34.4 L (37.0-47.0) % RDW 14.8 H (11.5-14.0) % Plt Count 146 L (150-450) K/mm3 MPV 11.4 H (6.0-9.5) fl Immature Gran # (Auto) 0.05 H (0.000-0.0310) K/mm3 Neutrophils % 86.8 H (42-75.0) % Lymphocytes % 7.2 L (20-51) % Neutrophils # 11.5 H (1.3-6.0) K/mm3 Lymphocytes # 1.0 L (1.5-3.5) k/mm3 Sodium 145 H (132-142) mmol/L Plasma Sodium 145 H (130-142) mmol/L Chloride 112 H (97-106) mmol/L Carbon Dioxide 23.1 L (24-32.6) mmol/L BUN/Creatinine Ratio 23.3 H (9.0-21.6) ALT 17 L (19-67) U/L Total Protein 5.6 L (6.2-8.2) gm/dL Albumin 2.4 L (3.4-5.0) gm/dl - Exam Constitutional: Present: Alert, Oriented x3, Cooperative Respiratory: Present: decreased breath sounds, wheezing Cardiovascular/Chest: Present: regular rate, rhythm, no murmur Abdomen: Present: Normal bowel sounds, soft, nontender, nondistended Cauti Physician Documentation - Urinary Catheter Management Urethral (Mathews) Date of Insertion: 11/07/17 Time of Insertion: 23:50 Date of Removal: 11/10/17 Time of Removal: 13:47 Assessment/Plan Plan Narrative: Donna is a 77 yo female with Acute respiratory failure secondary to pneumonia and COPD exacerbation. WBC continues to increase despite treatment with rocephin and azithromycin. She has not been on steroids due to anxiety and episodes of atrial fibrillation with RVR. Although afib has returned to normal sinus rhythm concerned that steroids would potentially worsen her condition. Due to WBC increasing will change rocephin to zosyn for broader coverage. Will continue azithromycin until completed 5 day course. Will monitor WBC. - Problems/Diagnosis (1) Acute respiratory failure with hypoxemia Problem: Acute (2) COPD exacerbation Problem: Acute (3) Pneumonia Problem: Acute Qualifiers: Laterality: right Lung location: middle lobe of lung (4) Atrial fibrillation with RVR Problem: Resolved
[2017-11-11] MEDS: PIPERACILLIN SODIUM/TAZOBACTAM 3.375 GM in DEXTROSE 5 % IN WATER 100 ML IV SCH ×8 (01:39→23:53)
[2017-11-11] MEDS: DILTIAZEM HCL 30 MG TABLET PO SCH ×4 (01:40→23:52)
[2017-11-11] MEDS: LEVALBUTEROL HCL 1.25 MG/3 ML AMPUL IH SCH ×6 (02:03→22:37)
[2017-11-11] MEDS: oxyCODONE HCL/ACETAMINOPHEN 1 TAB TABLET PO PRN ×3 (05:01→20:22)
[2017-11-11 05:39] LABS: Hematocrit 35.4 % (37.0-47.0); Hemoglobin 11.4 gm/dL (12.5-16.0); Mean Cell Volume 89.8 fl (78-100); Mean Corpuscular Hemoglobin 28.9 pg (27-31); Mean Corpuscular Hgb Conc 32.2 g/dl (32-36); Neutrophil # 7.8 K/mm3 (1.3-6.0); Neutrophil % 78.8 % (42-75.0); Platelet Count 165 K/mm3 (150-450); Red Blood Count 3.94 M/mm3 (4.2-5.4); Red Cell Distribution Width 14.5 % (11.5-14.0); White Blood Count 9.9 K/mm3 (4.0-10.5)
[2017-11-11 05:56] LABS: Albumin * 2.5 gm/dl (3.4-5.0); BUN/Creatinine Ratio 16.2 (9.0-21.6); Bilirubin, Total 0.4 mg/dL (0.0-1.1); Ca. Corrected For Albumin 9.8 mg/dL (8.4-10.2); Calcium * 8.9 mg/dL (7.9-10.9); Carbon Dioxide 25.5 mmol/L (24-32.6); Potassium 3.5 mmol/L (3.4-4.6); Total Protein 6.1 gm/dL (6.2-8.2)
[2017-11-11] MEDS: AZITHROMYCIN 500 MG in DEXTROSE 5 % IN WATER 250 ML IV SCH ×2 (06:05)
[2017-11-11] MEDS: HEPARIN SODIUM,PORCINE 5,000 UNITS/ML VIAL SC SCH ×3 (06:36→19:03)
[2017-11-11] MEDS: PANTOPRAZOLE SODIUM 40 MG TABLET.EC PO SCH (07:02)
[2017-11-11] MEDS: PROPRANOLOL HCL 20 MG TABLET PO SCH ×2 (08:46→20:22)
[2017-11-11] MEDS: CLOPIDOGREL BISULFATE 75 MG TABLET PO SCH (08:47)
[2017-11-11] MEDS: MULTIVITAMINS 1 CAP CAPSULE PO SCH (08:47)
[2017-11-11] MEDS: ASPIRIN 325 MG TABLET.DR PO SCH (08:48)
[2017-11-11] MEDS: LORazepam 2 MG/ML DISP.SYRIN IV PRN (08:57)
[2017-11-11] MEDS: NORMAL SALINE 1,000 ML IV PRN (16:23)
[2017-11-11] MEDS: LORazepam 0.5 MG TABLET PO SCH (18:41)
[2017-11-11] MEDS: ATORVASTATIN CALCIUM 40 MG TABLET PO SCH (20:22)
[2017-11-11] MEDS: SENNOSIDES/DOCUSATE SODIUM 1 TAB TABLET PO SCH (20:22)
--- NOTE | 2017-11-11 23:22 | PN ---
Subjective - Date and Time Seen Date: 11/11/17 Time: 12:45 Subjective Narrative: Donna looks better today. She is not as short of breath, but she still reports very dyspneic. Weaned from 5lpm to 1lpm today. No fever, chills, nausea, or vomiting. Objective - Vitals Vitals: Last Vital Signs Temp 36.0 C L 11/11/17 22:49 Pulse 51 L 11/11/17 22:49 Resp 22 H 11/11/17 22:49 BP 126/58 11/11/17 22:49 Pulse Ox 96 11/11/17 22:49 - Abnormal Lab Findings Abnormal Lab Findings: Abnormal Lab Results 11/11/17 11/11/17 Range/Units 05:35 05:35 RBC 3.94 L (4.2-5.4) M/mm3 Hgb 11.4 L (12.5-16.0) gm/dL Hct 35.4 L (37.0-47.0) % RDW 14.5 H (11.5-14.0) % MPV 11.0 H (6.0-9.5) fl Immature Gran % (Auto) 0.80 H (0.001-0.429) % Immature Gran # (Auto) 0.08 H (0.000-0.0310) K/mm3 Neutrophils % 78.8 H (42-75.0) % Lymphocytes % 11.7 L (20-51) % Neutrophils # 7.8 H (1.3-6.0) K/mm3 Lymphocytes # 1.2 L (1.5-3.5) k/mm3 Sodium 145 H (132-142) mmol/L Plasma Sodium 145 H (130-142) mmol/L Chloride 110 H (97-106) mmol/L ALT 17 L (19-67) U/L Total Protein 6.1 L (6.2-8.2) gm/dL Albumin 2.5 L (3.4-5.0) gm/dl - Exam Constitutional: Present: Alert, Oriented x3, Cooperative Respiratory: Present: decreased breath sounds, wheezing Cardiovascular/Chest: Present: regular rate, rhythm, no murmur Abdomen: Present: Normal bowel sounds, soft, nontender, nondistended Skin Exam: Present: normal color, warm/dry, no cyanosis Cauti Physician Documentation - Urinary Catheter Management Urethral (Mathews) Date of Insertion: 11/07/17 Time of Insertion: 23:50 Date of Removal: 11/10/17 Time of Removal: 13:47 Assessment/Plan Plan Narrative: Currently weaning oxygen. Still using 1lpm of oxygen but this is improved from 5lpm earlier today. Continue zosyn, xopenex, cornet, and incentive spirometer. Will schedule ativan PO. She still reports shortness of breath and lungs are very diminished but a lot of her reported dyspnea appears to be anxiety. - Problems/Diagnosis (1) Acute respiratory failure with hypoxemia Problem: Acute (2) COPD exacerbation Problem: Acute (3) Pneumonia Problem: Acute Qualifiers: Laterality: right Lung location: middle lobe of lung (4) Atrial fibrillation with RVR Problem: Resolved
[2017-11-12] MEDS: LEVALBUTEROL HCL 1.25 MG/3 ML AMPUL IH SCH ×6 (02:12→22:37)
[2017-11-12] MEDS: oxyCODONE HCL/ACETAMINOPHEN 1 TAB TABLET PO PRN ×4 (03:30→22:10)
[2017-11-12] MEDS: HEPARIN SODIUM,PORCINE 5,000 UNITS/ML VIAL SC SCH ×2 (05:50→18:01)
[2017-11-12 05:52] LABS: Hematocrit 35.7 % (37.0-47.0); Hemoglobin 11.5 gm/dL (12.5-16.0); Mean Cell Volume 87.3 fl (78-100); Mean Corpuscular Hemoglobin 28.1 pg (27-31); Mean Corpuscular Hgb Conc 32.2 g/dl (32-36); Mean Platelet Volume 10.9 fl (6.0-9.5); Neutrophil # 5.5 K/mm3 (1.3-6.0); Neutrophil % 69.6 % (42-75.0); Platelet Count 196 K/mm3 (150-450); Red Blood Count 4.09 M/mm3 (4.2-5.4); Red Cell Distribution Width 14.3 % (11.5-14.0); White Blood Count 7.9 K/mm3 (4.0-10.5)
[2017-11-12 06:03] LABS: Albumin * 2.4 gm/dl (3.4-5.0); Anion Gap 13.1 mmol/L (6.8-13.8); BUN/Creatinine Ratio 10.6 (9.0-21.6); Bilirubin, Total 0.5 mg/dL (0.0-1.1); Ca. Corrected For Albumin 9.5 mg/dL (8.4-10.2); Calcium * 8.5 mg/dL (7.9-10.9); Carbon Dioxide 24.7 mmol/L (24-32.6); Potassium 2.8 mmol/L (3.4-4.6); Total Protein 5.8 gm/dL (6.2-8.2)
[2017-11-12] MEDS: PANTOPRAZOLE SODIUM 40 MG TABLET.EC PO SCH (07:23)
[2017-11-12] MEDS: PIPERACILLIN SODIUM/TAZOBACTAM 3.375 GM in DEXTROSE 5 % IN WATER 100 ML IV SCH ×4 (08:27→16:00)
[2017-11-12] MEDS: PROPRANOLOL HCL 20 MG TABLET PO SCH ×2 (08:28→20:54)
[2017-11-12] MEDS: MULTIVITAMINS 1 CAP CAPSULE PO SCH (08:28)
[2017-11-12] MEDS: CLOPIDOGREL BISULFATE 75 MG TABLET PO SCH (08:28)
[2017-11-12] MEDS: LORazepam 0.5 MG TABLET PO SCH ×3 (08:28→17:53)
[2017-11-12] MEDS: DILTIAZEM HCL 30 MG TABLET PO SCH ×2 (08:28→16:00)
[2017-11-12] MEDS: ASPIRIN 325 MG TABLET.DR PO SCH (08:28)
[2017-11-12] MEDS: POTASSIUM CHLORIDE 20 MEQ TABLET.SA PO SCH ×2 (08:34→18:01)
[2017-11-12] MEDS: LORazepam 2 MG/ML DISP.SYRIN IV PRN ×2 (14:26→22:12)
[2017-11-12] MEDS: ATORVASTATIN CALCIUM 40 MG TABLET PO SCH (20:54)
[2017-11-12] MEDS: SENNOSIDES/DOCUSATE SODIUM 1 TAB TABLET PO SCH (20:55)
--- NOTE | 2017-11-12 23:38 | PN ---
Subjective - Date and Time Seen Date: 11/12/17 Time: 12:45 Subjective Narrative: Donna reports dyspnea and trouble breathing. During my interview her oxygen was changed from 1lpm to room air. She had a conversation with me and during this time her oxygen remained >95%. She reported no change in her feeling of dyspnea without oxygen. She was left on room air. Denies fever, chills, nausea, or vomiting. Objective - Vitals Vitals: Last Vital Signs Temp 36.5 C 11/12/17 19:12 Pulse 55 L 11/12/17 22:46 Resp 23 H 11/12/17 22:46 BP 167/69 11/12/17 20:54 Pulse Ox 93 11/12/17 22:37 - Abnormal Lab Findings Abnormal Lab Findings: Abnormal Lab Results 11/12/17 11/12/17 Range/Units 05:41 05:41 RBC 4.09 L (4.2-5.4) M/mm3 Hgb 11.5 L (12.5-16.0) gm/dL Hct 35.7 L (37.0-47.0) % RDW 14.3 H (11.5-14.0) % MPV 10.9 H (6.0-9.5) fl Immature Gran % (Auto) 2.50 H (0.001-0.429) % Immature Gran # (Auto) 0.20 H (0.000-0.0310) K/mm3 Lymphocytes % 14.9 L (20-51) % Monocytes % 10.8 H (0.0-9) % Lymphocytes # 1.2 L (1.5-3.5) k/mm3 Sodium 144 H (132-142) mmol/L Plasma Sodium 144 H (130-142) mmol/L Potassium 2.8 L (3.4-4.6) mmol/L Chloride 109 H (97-106) mmol/L ALT 17 L (19-67) U/L Total Protein 5.8 L (6.2-8.2) gm/dL Albumin 2.4 L (3.4-5.0) gm/dl - Exam Constitutional: Present: Alert, Oriented x3, Cooperative ENT Exam: Present: hearing grossly normal Respiratory: Present: decreased breath sounds, wheezing Cardiovascular/Chest: Present: regular rate, rhythm, no murmur Abdomen: Present: Normal bowel sounds, soft, nontender, nondistended Skin Exam: Present: normal color, warm/dry, no cyanosis Cauti Physician Documentation - Urinary Catheter Management Urethral (Mathews) Date of Insertion: 11/07/17 Time of Insertion: 23:50 Date of Removal: 11/10/17 Time of Removal: 13:47 Assessment/Plan Plan Narrative: Donna is a 77 yo female with: 1) Acute respiratory failure with hypoxia, hypercapnea, and respiratory acidosis - She was successfully weaned off oxygen today. Will monitor oxygen status. 2) Pneumonia - Completed azithromycin, currently on zosyn with improving WBC. Failed rocephin treatment. Continue cornet and incentive spirometer. 3) COPD Exacerbation - Treated with azithromycin and zosyn, cornet, and incentive spirometer. Steroids held due to anxiety and atrial fibrillation with RVR. 4) Atrial fibrillation with RVR - Resolved with addition of diltiazem. 5 Hypokalemia - Replaced and monitor. - Problems/Diagnosis (1) Pneumonia Problem: Acute Qualifiers: Laterality: right Lung location: middle lobe of lung (2) Acute respiratory failure with hypoxemia Problem: Resolved (3) COPD exacerbation Problem: Acute (4) Hypokalemia Problem: Acute (5) Atrial fibrillation with RVR Problem: Resolved
[2017-11-13] MEDS: DILTIAZEM HCL 30 MG TABLET PO SCH ×3 (00:22→17:07)
[2017-11-13] MEDS: PIPERACILLIN SODIUM/TAZOBACTAM 3.375 GM in DEXTROSE 5 % IN WATER 100 ML IV SCH ×6 (00:23→17:08)
[2017-11-13] MEDS: LORazepam 2 MG/ML DISP.SYRIN IV PRN ×2 (02:37→22:22)
[2017-11-13] MEDS: LEVALBUTEROL HCL 1.25 MG/3 ML AMPUL IH SCH ×7 (02:48→22:03)
[2017-11-13] MEDS: oxyCODONE HCL/ACETAMINOPHEN 1 TAB TABLET PO PRN ×3 (04:13→19:06)
[2017-11-13] MEDS: PANTOPRAZOLE SODIUM 40 MG TABLET.EC PO SCH (07:46)
[2017-11-13] MEDS: HEPARIN SODIUM,PORCINE 5,000 UNITS/ML VIAL SC SCH ×2 (07:47→19:05)
[2017-11-13] MEDS: PROPRANOLOL HCL 20 MG TABLET PO SCH ×2 (09:13→20:54)
[2017-11-13] MEDS: POTASSIUM CHLORIDE 20 MEQ TABLET.SA PO SCH ×2 (09:13→17:08)
[2017-11-13] MEDS: MULTIVITAMINS 1 CAP CAPSULE PO SCH (09:13)
[2017-11-13] MEDS: CLOPIDOGREL BISULFATE 75 MG TABLET PO SCH (09:14)
[2017-11-13] MEDS: LORazepam 0.5 MG TABLET PO SCH ×3 (09:14→17:07)
[2017-11-13] MEDS: ASPIRIN 325 MG TABLET.DR PO SCH (09:14)
[2017-11-13] MEDS: ATORVASTATIN CALCIUM 40 MG TABLET PO SCH (20:55)
[2017-11-13] MEDS: SENNOSIDES/DOCUSATE SODIUM 1 TAB TABLET PO SCH (20:56)
[2017-11-14] MEDS: PIPERACILLIN SODIUM/TAZOBACTAM 3.375 GM in DEXTROSE 5 % IN WATER 100 ML IV SCH ×6 (00:18→17:06)
[2017-11-14] MEDS: DILTIAZEM HCL 30 MG TABLET PO SCH ×3 (00:18→17:05)
[2017-11-14] MEDS: oxyCODONE HCL/ACETAMINOPHEN 1 TAB TABLET PO PRN ×4 (01:10→21:12)
[2017-11-14] MEDS: LEVALBUTEROL HCL 1.25 MG/3 ML AMPUL IH SCH ×6 (02:15→22:11)
[2017-11-14] MEDS: LORazepam 2 MG/ML DISP.SYRIN IV PRN ×2 (02:22→02:25)
[2017-11-14 05:49] LABS: Albumin * 2.8 gm/dl (3.4-5.0); Anion Gap 12.3 mmol/L (6.8-13.8); BUN/Creatinine Ratio 6.2 (9.0-21.6); Bilirubin, Total 0.7 mg/dL (0.0-1.1); Ca. Corrected For Albumin 9.7 mg/dL (8.4-10.2); Calcium * 9.1 mg/dL (7.9-10.9); Carbon Dioxide 30.9 mmol/L (24-32.6); Potassium 3.2 mmol/L (3.4-4.6); Total Protein 6.8 gm/dL (6.2-8.2)
[2017-11-14] MEDS: HEPARIN SODIUM,PORCINE 5,000 UNITS/ML VIAL SC SCH ×2 (07:24→19:04)
[2017-11-14] MEDS: PANTOPRAZOLE SODIUM 40 MG TABLET.EC PO SCH (07:24)
[2017-11-14] MEDS: ASPIRIN 325 MG TABLET.DR PO SCH (09:16)
[2017-11-14] MEDS: LORazepam 0.5 MG TABLET PO SCH ×3 (09:16→17:06)
[2017-11-14] MEDS: MULTIVITAMINS 1 CAP CAPSULE PO SCH (09:17)
[2017-11-14] MEDS: CLOPIDOGREL BISULFATE 75 MG TABLET PO SCH (09:17)
[2017-11-14] MEDS: POTASSIUM CHLORIDE 20 MEQ TABLET.SA PO SCH ×3 (09:17→17:05)
[2017-11-14] MEDS: PROPRANOLOL HCL 20 MG TABLET PO SCH ×2 (09:17→21:13)
--- NOTE | 2017-11-14 11:29 | PN ---
Subjective - Date and Time Seen Date: 11/13/17 Time: 11:24 Subjective Narrative: Complains of anxiety and difficulty in sleeping. Weaned off oxygen on 11/12/17. Feels slightly better. No sputum production Objective - Review of Systems Generalized/Overall Review: Reports: Weakness Respiratory: Reports: Cough Neurological: Reports: Anxiety - Vitals Vitals: Vital Signs 11/14/17 09:00 Temperature 36.6 C Pulse Rate 60 Respiratory 16 Rate Blood Pressure 157/84 O2 Sat by Pulse 93 Oximetry - Exam Constitutional: Present: Elderly - well nourished, anxious, Aand O x 3, in NAD. ENT Exam: Present: hearing grossly normal, dry mucous membranes Neck: Present: supple, trachea midline Respiratory: Present: decreased breath sounds - Right greater than Left especially at the bases. Cardiovascular/Chest: Present: regular rate, rhythm, systolic murmur Abdomen: Present: Normal bowel sounds, soft, nontender, nondistended Extremity: Present: normal inspection, no pedal edema Skin Exam: Present: warm/dry, pallor Eye contact: Present: cooperative, good eye contact, normal speech Cauti Physician Documentation - Urinary Catheter Management Urethral (Mathews) Date of Insertion: 11/07/17 Time of Insertion: 23:50 Date of Removal: 11/10/17 Time of Removal: 13:47 Assessment/Plan Plan Narrative: 1. RIGHT MID/LOWER LUNG PNEUMONIA/PLEURAL EFFUSION: On the Piperacillin/tazobactam 3.375 mg IV every 6 hours Day#7. Obtain CXR - PA and lateral today. Patient weaned off oxygen on 11/12/17. Cornet every 2 hours while awake. 2. EXACERBATION OF COPD: Due to #1. On Xopenex every 4 hours. 3. ANXIETY: On lorazepam 0.5 mg PO TID 4. GERD: On pantoprazole 40 mg before breakfast. 5. HYPERLIPIDEMIA: atorvastatin 40 mg daily. 6. DVT prophylaxis: Heparin 500 units twice a day. CODE STATUS: DO NOT RESUSCITATE
--- NOTE | 2017-11-14 13:29 | PN ---
Subjective - Date and Time Seen Date: 11/14/17 Time: 13:23 Subjective Narrative: Occasional pain while coughing on the right side of her rib cage. Feels coughing has improved. Has questions about discharge on 11/15/2017 and bounce back program. Objective - Review of Systems Generalized/Overall Review: Reports: Weakness Respiratory: Reports: Cough. Denies: Wheezing Neurological: Reports: Anxiety - Vitals Vitals: Last Vital Signs Temp 36.6 C 11/14/17 09:00 Pulse 64 11/14/17 10:27 Resp 24 H 11/14/17 10:27 BP 157/84 11/14/17 09:17 Pulse Ox 96 11/14/17 10:17 - Abnormal Lab Findings Abnormal Lab Findings: Laboratory Tests 11/14/17 05:36 Plasma Sodium 147 H Potassium 3.2 L Chloride 106 Carbon Dioxide 30.9 BUN 4 Creatinine 0.65 Est GFR (Non-Af Amer) 94 Random Glucose 133 H Calcium Adj for Albumin 9.7 Total Bilirubin 0.7 AST 16 ALT 21 Alkaline Phosphatase 80 Total Protein 6.8 Albumin 2.8 L - Exam Constitutional: Present: Elderly - Well-nourished, anxious, alert and oriented 3, in no NAD. ENT Exam: Present: hearing grossly normal, dry mucous membranes Neck: Present: supple, trachea midline Respiratory: Present: decreased breath sounds - RT > LT; diminished at RIGHT bases. Cardiovascular/Chest: Present: regular rate, rhythm, systolic murmur. Absent: tachycardia Abdomen: Present: Normal bowel sounds, soft, nontender, nondistended Extremity: Present: normal inspection, no pedal edema Skin Exam: Present: warm/dry. Absent: pallor Eye contact: Present: cooperative, good eye contact, normal speech Cauti Physician Documentation - Urinary Catheter Management Urethral (Mathews) Date of Insertion: 11/07/17 Time of Insertion: 23:50 Date of Removal: 11/10/17 Time of Removal: 13:47 Assessment/Plan Plan Narrative: 1. RIGHT MID/LOWER LUNG PNEUMONIA/ RIGHT PLEURAL EFFUSION: On the Piperacillin/tazobactam 3.375 mg IV every 6 hours Day#8. Patient weaned off oxygen on 11/12/17. Cornet every 2 hours while awake. CXR -PA and lateral from 11/13/17 shows worsening RML and RLL infiltrate and worsening pleural effusion however patient has clinically improved.[ And prior x-rays were portable]. 2. EXACERBATION OF COPD: Due to #1. On Xopenex every 4 hours. 3. ANXIETY: On lorazepam 0.5 mg PO TID; Start on sertraline 25 mg daily. 4. GERD: On pantoprazole 40 mg before breakfast. 5. HYPERLIPIDEMIA: atorvastatin 40 mg daily. 6. HYPERNATREMIA/HYPOKALEMIA: Na+ 147, K+ 3.2 on today's labs. Patient encouraged to drink more fluids and K- Dur increased to 40 mEq by mouth 3 times a day. Check labs on 11/15/17. 7. DVT prophylaxis: Heparin 500 units twice a day. CODE STATUS: DO NOT RESUSCITATE
[2017-11-14] MEDS: SERTRALINE HCL 50 MG TABLET PO SCH (13:31)
[2017-11-14] MEDS: ATORVASTATIN CALCIUM 40 MG TABLET PO SCH (21:13)
[2017-11-14] MEDS: SENNOSIDES/DOCUSATE SODIUM 1 TAB TABLET PO SCH (21:13)
[2017-11-15] MEDS: LORazepam 2 MG/ML DISP.SYRIN IV PRN (00:16)
[2017-11-15] MEDS: PIPERACILLIN SODIUM/TAZOBACTAM 3.375 GM in DEXTROSE 5 % IN WATER 100 ML IV SCH ×4 (00:17→08:09)
[2017-11-15] MEDS: DILTIAZEM HCL 30 MG TABLET PO SCH ×2 (00:18→08:10)
[2017-11-15] MEDS: LEVALBUTEROL HCL 1.25 MG/3 ML AMPUL IH SCH ×3 (02:17→10:15)
[2017-11-15] MEDS: oxyCODONE HCL/ACETAMINOPHEN 1 TAB TABLET PO PRN (04:44)
[2017-11-15 05:56] LABS: Hematocrit 39.2 % (37.0-47.0); Hemoglobin 12.9 gm/dL (12.5-16.0); Mean Cell Volume 86.2 fl (78-100); Mean Corpuscular Hemoglobin 28.4 pg (27-31); Mean Corpuscular Hgb Conc 32.9 g/dl (32-36); Mean Platelet Volume 9.7 fl (6.0-9.5); Neutrophil # 6.2 K/mm3 (1.3-6.0); Neutrophil % 65.7 % (42-75.0); Platelet Count 268 K/mm3 (150-450); Red Blood Count 4.55 M/mm3 (4.2-5.4); Red Cell Distribution Width 14.5 % (11.5-14.0); White Blood Count 9.5 K/mm3 (4.0-10.5)
[2017-11-15 06:07] LABS: Albumin * 2.6 gm/dl (3.4-5.0); Anion Gap 12.8 mmol/L (6.8-13.8); BUN/Creatinine Ratio 5.3 (9.0-21.6); Bilirubin, Total 0.6 mg/dL (0.0-1.1); Ca. Corrected For Albumin 9.7 mg/dL (8.4-10.2); Calcium * 8.9 mg/dL (7.9-10.9); Carbon Dioxide 30.3 mmol/L (24-32.6); Potassium 4.1 mmol/L (3.4-4.6); Total Protein 6.3 gm/dL (6.2-8.2)
[2017-11-15] MEDS: PANTOPRAZOLE SODIUM 40 MG TABLET.EC PO SCH (06:52)
[2017-11-15] MEDS: HEPARIN SODIUM,PORCINE 5,000 UNITS/ML VIAL SC SCH (06:55)
[2017-11-15] MEDS: LORazepam 0.5 MG TABLET PO SCH ×2 (08:09→12:10)
[2017-11-15] MEDS: POTASSIUM CHLORIDE 20 MEQ TABLET.SA PO SCH ×2 (08:09→12:11)
[2017-11-15] MEDS: CLOPIDOGREL BISULFATE 75 MG TABLET PO SCH (08:09)
[2017-11-15] MEDS: PROPRANOLOL HCL 20 MG TABLET PO SCH (08:09)
[2017-11-15] MEDS: SERTRALINE HCL 50 MG TABLET PO SCH (08:10)
[2017-11-15] MEDS: ASPIRIN 325 MG TABLET.DR PO SCH (08:10)
[2017-11-15] MEDS: MULTIVITAMINS 1 CAP CAPSULE PO SCH (08:10)
--- NOTE | 2017-11-15 11:34 | DS ---
(1) Acute respiratory failure with hypoxemia Problem: Resolved (2) Pneumonia Problem: Acute Qualifiers: Laterality: right Lung location: middle lobe of lung (3) COPD exacerbation Problem: Acute (4) Hypokalemia Problem: Resolved (5) Atrial fibrillation with RVR Problem: Resolved Description of Stay: Donna is a 77 yo female that was admitted with right middle lobe pneumonia and respiratory failure secondary to pneumonia and COPD exacerbation with hypoxia and hypercapnea. She was placed on oxygen but was not maintaining oxygen sats. She was advanced to mask therapy but still had difficulty at times. An arterial blood gas showed hypercapnea and respiratory acidosis and she was attempted on a bipap, but did not tolerate this and was placed back on mask. She requested never to be placed on a bipap again and declined mechanical ventilator use. She was treated with azithromycin and rocephin initially but due to the severity of her condition and rising WBC the rocephin was advanced to zosyn. She was given xopenex nebulizers due to tachycardia. Steroids were not given due to tachycardia and anxiety that were felt to worsen if steroids were used. Due to the stress of the illness she developed atrial fibrillation ( which was new) and rapid ventricular response. She was initially treated with diltiazem IV and continued on diltiazem drip which helped with her heart rate and she eventually converted to normal sinus rhythm but then developed hypotension. She was given fluid boluses to improve blood pressure. Diltiazem was discontinued due to the hypotension, which then caused the patient to go back into atrial fibrillation with RVR. She was then given low dose oral diltizem which helped to control heart rate and blood pressure remained stable. Eventually she converted back to normal sinus rhythm and blood pressure remained controlled. She was continued on breathing treatments, azithromycin, and zosyn. Her oxygen was gradually weaned from mask to nasal canula and ultimately to room air. Her anxiety was controlled with ativan. She gradually improved and was discharged. Due to the acute illness she was significantly weakened and needed additional therapy. She was discharged to [facility] for strengthening. Procedures Performed: none Discharge Location: [facility] Disposition: SNF Condition: Good Discharge Activity: Activity as tolerated Discharge Diet: General/regular food Discharge Level of Care:: SNF - [facility] Referrals: Lucio Garza MD [Primary Care Provider] - Problem Oriented Discharge Instructions to Patient/Family: Atrial Fibrillation , [id number], Community-Acquired Pneumonia, Adult, [id number] Additional Patient Instructions (free text): -Please make TCM appointment unless [facility] discharge. Thank you! Prachi @ ext:[phone]. Prescriptions (Any new or edited meds): Acetaminophen [Tylenol] 650 mg PO Q4H PRN #120 tablet PRN Reason: Mild Pain (Pain Scale 1-3) Amox Tr/Potassium Clavulanate [Augmentin 875-125 Tablet] 875 mg PO Q12H #20 tab Diltiazem HCl [Diltiazem 24Hr Cd] 120 mg PO DAILY #30 cap.er.24h LORazepam [Ativan] 0.5 mg PO TID #90 tablet oxyCODONE HCL/ACETAMINOPHEN [Percocet 5 MG/325 MG] 1 tab PO Q6H PRN #120 tablet PRN Reason: Pain Sennosides/Docusate Sodium [Senokot-S] 2 tab PO HS #60 tablet Sertraline HCl [Zoloft] 25 mg PO DAILY #30 tablet Complete Home Medications List: Complete Home Medication List: Atorvastatin Calcium [Lipitor] 40 mg PO DAILY 08/28/14 Multivitamin [Multi-Vitamin Daily] 1 each PO DAILY 08/28/14 LORazepam [Ativan] 0.5 mg PO Q3H PRN 09/07/14 Aspirin 325 mg PO DAILY 10/12/14 Clopidogrel Bisulfate [Plavix] 75 mg PO DAILY 10/12/14 Bisacodyl [Dulcolax] 5 mg PO DAILY 11/28/14 Pantoprazole Sodium [Protonix] 40 mg PO DAILY 11/28/14 Propranolol HCl 60 mg PO BID 11/09/17 Acetaminophen [Tylenol] 650 mg PO Q4H PRN #120 tablet 11/15/17 Amox Tr/Potassium Clavulanate [Augmentin 875-125 Tablet] 875 mg PO Q12H #20 tab 11/15/17 Diltiazem HCl [Diltiazem 24Hr Cd] 120 mg PO DAILY #30 cap.er.24h 11/15/17 LORazepam [Ativan] 0.5 mg PO TID #90 tablet 11/15/17 Sennosides/Docusate Sodium [Senokot-S] 2 tab PO HS #60 tablet 11/15/17 Sertraline HCl [Zoloft] 25 mg PO DAILY #30 tablet 11/15/17 oxyCODONE HCL/ACETAMINOPHEN [Percocet 5 MG/325 MG] 1 tab PO Q6H PRN #120 tablet 11/15/17 Amb Orders for Discharge: Basic Metabolic Panel Time Frame: 3 Days, Facility: [facility] , Location: Laboratory Chest PA & Lateral * Time Frame: 2 Weeks, Facility: [facility], Location: Radiology
[2017-11-15 13:38] VITALS: BP 143/76
== END 2017-11-15 13:15 | DRG 189 ==
LOC: ER 03:41 → MS 05:50 → OBSVTOIN 10:37 → SCU 11:45 → MS 11-09 16:03
PROVIDERS: ADMIT Nurse Practitioner; ATTEND Family Medicine
PROC: 4A033R1 Measurement of Arterial Saturation, Peripheral, Percutaneous Approach (ICD-10-PCS; principal; 2017-11-07)
DX: J44.0 Chronic obstructive pulmonary disease with (acute) lower respiratory infection; J96.01 Acute respiratory failure with hypoxia; E78.5 Hyperlipidemia, unspecified; J18.9 Pneumonia, unspecified organism; J44.1 Chronic obstructive pulmonary disease with (acute) exacerbation; E87.6 Hypokalemia; I48.0 Paroxysmal atrial fibrillation; Z87.891 Personal history of nicotine dependence

== ENCOUNTER 2019-09-25 17:30 | Inpatient (IN) ==
--- NOTE | 2019-09-25 17:55 | ERNOTE ---
Dyspnea - General Presenting Symptoms: shortness of breath Time Seen by Provider: 09/25/19 17:31 Source: patient Exam Limitations: no limitations - Immun/Allergies/Home Medications Immunizations: IMMUNIZATION HX Immunizations Up to Date Yes History of Influenza Vaccine Yes Hx Pneumococcal Vaccination Yes Allergies/Adverse Reactions: Allergies diphenhydramine [From Benadryl] Allergy (Severe, Verified 09/25/19 17:41) Other "Out of body experience" chlorpromazine HCl [From Thorazine] Allergy (Unknown, Verified 09/25/19 17:41) ondansetron HCl [From Zofran (as hydrochloride)] Adverse Reaction (Severe, Verified 09/25/19 17:41) Headache Home Medications: HOME MEDICATIONS Atorvastatin Calcium [Lipitor] 40 mg PO DAILY 08/28/14 [Last Taken 09/06/14 08:00] Multivitamin [Multi-Vitamin Daily] 1 each PO DAILY 08/28/14 [Last Taken 09/05/14 08:00 1 tab] Aspirin 325 mg PO DAILY 10/12/14 [Last Taken Unknown] Clopidogrel Bisulfate [Plavix] 75 mg PO DAILY 10/12/14 [Last Taken Unknown] Pantoprazole Sodium [Protonix] 40 mg PO DAILY 11/28/14 [Last Taken Unknown] Propranolol HCl 60 mg PO BID 11/09/17 [Last Taken Unknown] Acetaminophen [Tylenol] 650 mg PO Q4H PRN #120 tablet 11/15/17 [Last Taken Unknown] Diltiazem HCl [Diltiazem 24Hr Cd] 120 mg PO DAILY #30 cap.er.24h 11/15/17 [Last Taken Unknown] Sennosides/Docusate Sodium [Senokot-S] 2 tab PO HS #60 tablet 11/15/17 [Last Taken Unknown] Furosemide [Lasix] 40 mg PO DAILY 05/01/18 [Last Taken Unknown] Gabapentin 300 mg PO TID 05/01/18 [Last Taken Unknown] Potassium Chloride [K-Tab ER] 10 meq PO BID 05/01/18 [Last Taken Unknown] Sertraline HCl [Zoloft] 100 mg PO DAILY 05/01/18 [Last Taken Unknown] - History of Present Illness Narrative: Patient has a history of COPD and 'cyst on my lungs that have exploded'. Yesterday she started with URI symptoms and today with shortness of breath, productive cough, aches and weakness. She has influenza and pneumonia vaccinations, doesn't want any neb treatments as it might worsen her anxiety, denies any chest pain Treatment [employer]: oxygen Initiating event: Reports: upper resp illness. Denies: out of meds Frequency of episodes: Reports: occassional episodes Modifying Factors - (Improves): Reports: rest Modifying Factors (Worsens): Reports: activity Associated Symptoms-Dyspnea: Reports: fever/chills, cough, wheezing, weakness. Denies: chest pain/discomfort Prior Treatment: Denies: recently seen, currently on antibiotics Review of Systems - Review of Systems Constitutional: Present: chills, malaise ENT: Present: nose congestion. Absent: sore throat Respiratory: Present: shortness of breath, cough Cardiology: Absent: chest pain Gastrointestinal/Abdominal: Absent: nausea, vomiting, abdominal pain Genitourinary: Present: no symptoms reported Skin: Absent: rash Neurological: Present: weakness - generalized. Absent: headache Medical History (Last Reviewed 09/25/19 @ 18:07 by Zaida Solis MD) History of alcoholism (Acute) Afib Anxiety COPD (chronic obstructive pulmonary disease) Chronic pain HDL deficiency Peripheral polyneuropathy TIA (transient ischemic attack) history of polysubstance abuse Surgical History: Surgical History (Last Reviewed 09/25/19 @ 18:07 by Zaida Solis MD) History of hysterectomy Hx laparoscopic cholecystectomy Family History: Family History (Last Reviewed 09/25/19 @ 17:41 by Leesa Mattson RN) Other Family history of breast cancer in sister Patient's father is Patient's mother is Social History: (Last Updated 09/25/19 @ 17:42 by Leesa Mattson RN) Tobacco: Smoking Status: Current every day smoker tobacco type: cigarettes Smoking cigarettes per day: 20 Alcohol: alcohol intake: current Alcohol type: beer alcohol intake frequency: holiday/special occasion Substance Use: substance use type: does not use Physical Exam - Physical Exam General Appearance: Present: wd/wn, alert, no apparent distress, anxious Ears, Nose, Throat: Present: normal pharynx Respiratory: Present: no accessory muscle use, decreased breath sounds, expiration (prolonged), wheezing - occasional Cardiovascular/Chest: Present: regular rate, rhythm, no murmur Gastrointestinal/Abdominal: Present: normal bowel sounds, nontender, nondistended, soft Extremity Exam: Present: no edema Neurological Exam: Present: alert, oriented, normal mood/affect Skin Exam: Present: normal color, warm/dry Progress - Results and Orders Patient's Lab Results:: I have reviewed the patient's lab results. - Vital Signs Patient's Vital Signs:: I have reviewed the patient's vital signs. Vital Signs: Vital Signs 09/25/19 17:38 09/25/19 17:42 Temperature 38.6 C H Pulse Rate 90 87 Respiratory Rate 19 Blood Pressure 129/74 O2 Sat by Pulse Oximetry 91 L - X-Ray X-Ray #1 X-Ray: chest - right upper lung infiltrate Interpretation: Interp. by me - Progress/Reassessment Chief Complaint: Upper Respiratory Symptoms Progress Note-Subjective: 09/25/19 18:24 discussed CXR results with patient, offered admission for pneumonia, patient agreed 09/25/19 18:44 discussed with filipe Leger to admit for pneumonia and start rocephin and zithromax Patient was 90-91% on RA, 94% on 1liter O2 Departure Clinical Impression: Pneumonia Qualifiers: Pneumonia type: due to unspecified organism Laterality: right Lung location: upper lobe of lung Qualified Code(s): J18.9 - Pneumonia, unspecified organism COPD (chronic obstructive pulmonary disease) Qualifiers: COPD type: unspecified COPD Qualified Code(s): J44.9 - Chronic obstructive pulmonary disease, unspecified - Departure Disposition: Still a patient Condition: Stable
[2019-09-25 18:19] LABS: Hematocrit 45.8 % (37.0-47.0); Hemoglobin 14.8 gm/dL (12.5-16.0); Mean Cell Volume 85.9 fl (78-100); Mean Corpuscular Hemoglobin 27.8 pg (27-31); Mean Corpuscular Hgb Conc 32.3 g/dl (32-36); Neutrophil # 18.9 K/mm3 (1.3-6.0); Neutrophil % 89.4 % (42-75.0); Platelet Count 249 K/mm3 (150-450); Red Blood Count 5.33 M/mm3 (4.2-5.4); Red Cell Distribution Width 14.6 % (11.5-14.0); White Blood Count 21.2 K/mm3 (4.0-10.5)
[2019-09-25] MEDS ORDERED: ACETAMINOPHEN 325 MG TABLET PO ONE (18:23)
[2019-09-25 18:39] LABS: Albumin * 3.2 gm/dl (3.4-5.0); Anion Gap 14.2 mmol/L (6.8-13.8); BUN/Creatinine Ratio 10.7 (9.0-21.6); Bilirubin, Total 0.6 mg/dL (0.0-1.1); Calcium * 9.7 mg/dL (7.9-10.9); Carbon Dioxide 27.8 mmol/L (24-32.6); Total Protein 7.3 gm/dL (6.2-8.2)
[2019-09-25] MEDS ORDERED: ACETAMINOPHEN 325 MG TABLET PO PRN (18:49)
[2019-09-25] MEDS ORDERED: AZITHROMYCIN 250 MG TABLET PO STA (18:49)
[2019-09-25] MEDS ORDERED: GABAPENTIN 300 MG CAPSULE PO SCH (21:00)
[2019-09-26] MEDS ORDERED: guaiFENesin 100 MG/5 ML SYRUP PO PRN (07:30)
[2019-09-26 07:53] LABS: Hematocrit 43.2 % (37.0-47.0); Hemoglobin 13.8 gm/dL (12.5-16.0); Mean Cell Volume 87.3 fl (78-100); Mean Corpuscular Hemoglobin 27.9 pg (27-31); Mean Corpuscular Hgb Conc 31.9 g/dl (32-36); Mean Platelet Volume 9.9 fl (8-12.5); Neutrophil # 16.9 K/mm3 (1.3-6.0); Neutrophil % 87.7 % (42-75.0); Platelet Count 246 K/mm3 (150-450); Red Blood Count 4.95 M/mm3 (4.2-5.4); Red Cell Distribution Width 14.9 % (11.5-14.0); White Blood Count 19.2 K/mm3 (4.0-10.5)
--- NOTE | 2019-09-26 08:14 | HP ---
Chief Complaint - Chief Complaint Date of Service: 09/26/19 Time of Service: 07:52 Chief Complaint: I have had shortness of breath, a productive cough and fever over the past several days History of Present Illness: 79-year-old female with past medical history of atrial fibrillation, anxiety, chronic pain, COPD, HDL deficiency, former alcoholic, history of polysubstance abuse, peripheral neuropathy, TIA, recurrent CVA, and Parkinson's disease was evaluated in our ER for worsening shortness of breath accompanied by productive cough of yellowish sputum as well as recurrent high-grade fevers. Patient reports her symptoms started with a productive cough over a week ago but worsened in the middle of last week and became more productive in nature. She also reports developing fevers where she would become extremely warm and dev eloped chills. 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 She reports having chronic shortness of breath but not requiring oxygen by yesterday morning while in her home she became extremely short of breath and reports extreme weakness where she could not get out of bed. Patient normally lives with her granddaughter who works during the day which results in the patient being alone for multiple hours. The patient also has a history of Parkinson's disease which has caused a significant tremor and shuffling of her gait, therefore when she became sicker yesterday she was unable to care for herself and eventually had to come to the hospital. Medical History (Last Updated 09/26/19 @ 07:51 by Courtney Vallejo MD) History of alcoholism (Acute) Parkinson disease Afib Anxiety COPD (chronic obstructive pulmonary disease) Chronic pain HDL deficiency Peripheral polyneuropathy TIA (transient ischemic attack) history of polysubstance abuse Surgical History: Surgical History (Last Reviewed 09/25/19 @ 18:07 by Zaida Solis MD) History of hysterectomy Hx laparoscopic cholecystectomy Family History: Family History (Last Reviewed 09/25/19 @ 17:41 by Leesa Mattson RN) Other Family history of breast cancer in sister Patient's father is Patient's mother is Social History: (Last Updated 09/25/19 @ 17:42 by Leesa Mattson RN) Tobacco: Smoking Status: Current every day smoker tobacco type: cigarettes Smoking cigarettes per day: 20 Alcohol: alcohol intake: current Alcohol type: beer alcohol intake frequency: holiday/special occasion Substance Use: substance use type: does not use Peds Patient Hx - Developmental: No Pertinent Hx Peds Patient Hx - Medical: No Pertinent Hx Peds Patient Hx - Cardiac/Respiratory: No Pertinent Hx Peds Patient Hx - Surgical: No Surgical History Patient History - Cancer: No Hx of Cancer Review Of Systems (GEN) - Review of Systems Generalized/Overall Review: Present: Weakness, Chills, Fever, Malaise EENTM: Present: No Symptoms Reported Respiratory: Present: Cough, Shortness of Breath Cardiac: Present: No Symptoms Reported Abdominal: Present: No Symptoms Reported Genitourinary: Present: No Symptoms Reported Musculoskeletal: Present: No Symptoms Reported Neurological: Present: Tremors, Weakness Skin: Present: No Symptoms Reported Endocrine: Present: No Symptoms Reported Immunizations: IMMUNIZATION HX Immunizations Up to Date Yes History of Influenza Vaccine Yes Hx Pneumococcal Vaccination Yes Allergies/Adverse Reactions: Allergies Allergy/AdvReac Type Severity Reaction Status Date / Time diphenhydramine Allergy Severe Other Verified 09/25/19 17:41 [From Benadryl] chlorpromazine HCl Allergy Unknown Verified 09/25/19 17:41 [From Thorazine] ondansetron HCl AdvReac Severe Headache Verified 09/25/19 17:41 [From Zofran (as hydrochloride)] Home Medications: HOME MEDICATIONS Atorvastatin Calcium [Lipitor] 40 mg PO DAILY 08/28/14 [Last Taken 09/06/14 08:00] Multivitamin [Multi-Vitamin Daily] 1 each PO DAILY 08/28/14 [Last Taken 09/05/14 08:00 1 tab] Aspirin 325 mg PO DAILY 10/12/14 [Last Taken Unknown] Clopidogrel Bisulfate [Plavix] 75 mg PO DAILY 10/12/14 [Last Taken Unknown] Pantoprazole Sodium [Protonix] 40 mg PO DAILY 11/28/14 [Last Taken Unknown] Propranolol HCl 60 mg PO BID 11/09/17 [Last Taken Unknown] Acetaminophen [Tylenol] 650 mg PO Q4H PRN #120 tablet 11/15/17 [Last Taken Unknown] Diltiazem HCl [Diltiazem 24Hr Cd] 120 mg PO DAILY #30 cap.er.24h 11/15/17 [Last Taken Unknown] Gabapentin 300 mg PO TID 05/01/18 [Last Taken Unknown] Potassium Chloride [K-Tab ER] 10 meq PO BID 05/01/18 [Last Taken Unknown] Sertraline HCl [Zoloft] 100 mg PO DAILY 05/01/18 [Last Taken Unknown] Hydrochlorothiazide [Hydrodiuril] 25 mg PO DAILY 09/26/19 [Last Taken Unknown] Exam - Exam Vital Signs: Vital Signs - Last Taken Temp 36.8 C 09/26/19 06:25 Pulse 88 09/26/19 06:25 Resp 18 09/26/19 06:25 BP 129/62 09/26/19 06:25 Pulse Ox 95 09/26/19 06:25 Constitutional: Present: Alert, Oriented x3, Cooperative, Well developed, Well nourished, No distress, Elderly ENT Exam: Present: normal ENT inspection, hearing grossly normal, pharynx normal, TMs normal Eye Exam: bilateral eye: normal inspection, PERRL, EOMI Neck: Present: non-tender, full range of motion, supple, normal inspection, trachea midline Back Exam: Present: normal inspection, no CVA tenderness, no vertebral tenderness Breasts: Present: Exam deferred Respiratory: Present: chest non-tender, crackles, rhonchi, wheezing Cardiovascular/Chest: Present: normal peripheral pulses, no chest tenderness, no edema, no gallop, no JVD, no murmur, no rub, irregularly irregular Peripheral Pulses: carotid (R): 3+, carotid (L): 3+, femoral (R): 3+, femoral (L): 3+, dorsalis-pedis (R): 3+, dorsalis-pedis (L): 3+ Abdomen: Present: Normal bowel sounds, soft, nontender, nondistended, no rebound tenderness, no hepatospenomegaly, no masses /Rectal: Present: Exam deferred Extremity: Present: normal range of motion, non-tender, normal inspection, no pedal edema, no calf tenderness, normal capillary refill, pelvis stable Skin Exam: Present: normal color, warm/dry, no cyanosis Lymphatic: Present: no adenopathy Neurologic: Present: traffic officer II-XII nml as tested, normal cerebellar test, no motor/sensory deficits, alert, normal mood/affect, oriented x 3, other - Significant tremor at rest Appearance: Present: appropriate appearance, appropriate insight, neat, no memory impairment Eye contact: Present: cooperative, good eye contact, normal speech Thoughts: Present: normal thought pattern, no apparent hallucination Diagnostic Studies: Abnormal Lab Results 09/25/19 09/25/19 Range/Units 18:11 18:11 WBC 21.2 H (4.0-10.5) K/mm3 RDW 14.6 H (11.5-14.0) % Immature Gran % (Auto) 0.50 H (0.001-0.429) % Immature Gran # (Auto) 0.10 H (0.000-0.0310) K/mm3 Neutrophils % 89.4 H (42-75.0) % Lymphocytes % 5.1 L (20-51) % Neutrophils # 18.9 H (1.3-6.0) K/mm3 Lymphocytes # 1.07 L (1.5-3.5) k/mm3 Potassium 3.0 L (3.4-4.6) mmol/L Anion Gap 14.2 H (6.8-13.8) mmol/L Random Glucose 114 H (70-110) mg/dL ALT 12 L (19-67) U/L B-Natriuretic Peptide 553 H (5-550) pg/mL Albumin 3.2 L (3.4-5.0) gm/dl Laboratory Results WBC 21.2 K/mm3 (4.0-10.5) H 09/25/19 18:11 RBC 5.33 M/mm3 (4.2-5.4) 09/25/19 18:11 Hgb 14.8 gm/dL (12.5-16.0) 09/25/19 18:11 Hct 45.8 % (37.0-47.0) 09/25/19 18:11 MCV 85.9 fl (78-100) 09/25/19 18:11 MCH 27.8 pg (27-31) 09/25/19 18:11 MCHC 32.3 g/dl (32-36) 09/25/19 18:11 RDW 14.6 % (11.5-14.0) H 09/25/19 18:11 Plt Count 249 K/mm3 (150-450) 09/25/19 18:11 MPV 10.0 fl (8-12.5) 09/25/19 18:11 Immature Gran % (Auto) 0.50 % (0.001-0.429) H 09/25/19 18:11 Immature Gran # (Auto) 0.10 K/mm3 (0.000-0.0310) H 09/25/19 18:11 Neutrophils % 89.4 % (42-75.0) H 09/25/19 18:11 Lymphocytes % 5.1 % (20-51) L 09/25/19 18:11 Monocytes % 4.7 % (0.0-9) 09/25/19 18:11 Eosinophils % 0.1 % (0.0-3.0) 09/25/19 18:11 Basophils % 0.2 % (0.0-1.0) 09/25/19 18: Nucleated RBC % 0.0 k/mm3 (0-1) 09/25/19 18:11 Neutrophils # 18.9 K/mm3 (1.3-6.0) H 09/25/19 18:11 Lymphocytes # 1.07 k/mm3 (1.5-3.5) L 09/25/19 18:11 Monocytes # 1.0 k/mm3 (0.0-1.0) 09/25/19 18:11 Eosinophils # 0.0 k/mm3 (0.0-0.7) 09/25/19 18: Absolute Basophils 0.1 k/mm3 (0.0-0.1) 09/25/19 18:11 Sodium 140 mmol/L (132-142) 09/25/19 18:11 Plasma Sodium 140 mmol/L (130-142) 09/25/19 18:11 Potassium 3.0 mmol/L (3.4-4.6) L 09/25/19 18:11 Chloride 101 mmol/L (97-106) 09/25/19 18:11 Carbon Dioxide 27.8 mmol/L (24-32.6) 09/25/19 18:11 Anion Gap 14.2 mmol/L (6.8-13.8) H 09/25/19 18:11 BUN 8 mg/dL (3-23) 09/25/19 18:11 Creatinine 0.75 mg/dL (0.4-1.4) 09/25/19 18:11 Est GFR (Non-Af Amer) 79 mL/min (60-130) D 09/25/19 18:11 BUN/Creatinine Ratio 10.7 (9.0-21.6) 09/25/19 18:11 Random Glucose 114 mg/dL (70-110) H 09/25/19 18:11 Lactic Acid, Venous 0.9 mmol/L (0.4-2.0) 09/25/19 18:11 Calcium 9.7 mg/dL (7.9-10.9) 09/25/19 18:11 Calcium Adj for Albumin 10.0 mg/dL (8.4-10.2) 09/25/19 18:11 Total Bilirubin 0.6 mg/dL (0.0-1.1) 09/25/19 18:11 AST 11 U/L (0-48) 09/25/19 18:11 ALT 12 U/L (19-67) L 09/25/19 18:11 Alkaline Phosphatase 102 U/L (50-170) 09/25/19 18:11 B-Natriuretic Peptide 553 pg/mL (5-550) H 09/25/19 18:11 Total Protein 7.3 gm/dL (6.2-8.2) 09/25/19 18:11 Albumin 3.2 gm/dl (3.4-5.0) L 09/25/19 18:11 Influenza Type A Ag Negative (NEGATIVE) 09/25/19 17:40 Influenza Type B Ag Negative (NEGATIVE) 09/25/19 17:40 Assessment/Plan - Narrative Narrative: Patient was evaluated medical chart was reviewed and decision to admit to inpatient for treatment of bronchopneumonia and dehydration was made. Labs on admission demonstrates significant leukocytosis with left shift, hypokalemia, and mildly elevated BNP. Chest x-ray revealed right upper and middle lobe infiltration likely pneumonia. Physical exam was significant for bibasilar crackles and scattered rhonchi as well as wheezing. Patient was found to be hypoxic in the ER and was placed on oxygen by nasal cannula, which has improved her oxygen saturation. Treatment plan includes IV antibiotics, IV fluids, oxygen by nasal cannula, electrolyte replacement particularly potassium. Repeat labs have been ordered to follow her progress and response to therapy. Patient also reported during bedside evaluation that this is her third bout of pneumonia requiring hospitalization the last one being couple months ago and said her previous episodes presented very similar to this one. - Assessment/Plan (1) Right upper lobe pneumonia Problem: Acute (2) Recurrent pneumonia Problem: Acute (3) Generalized weakness Problem: Acute (4) Parkinson disease Problem: Chronic (5) COPD exacerbation Problem: Acute (6) History of recurrent TIAs Problem: Chronic
[2019-09-26] MEDS ORDERED: NORMAL SALINE 1,000 ML IV ONE (08:17)
[2019-09-26] MEDS: ACETAMINOPHEN 325 MG TABLET PO PRN ×2 (08:52→16:54)
[2019-09-26] MEDS: POTASSIUM CHLORIDE IN WATER 100 ML IV SCH ×4 (08:57→13:47)
[2019-09-26] MEDS: SERTRALINE HCL 100 MG TABLET PO SCH (08:59)
[2019-09-26] MEDS: PROPRANOLOL HCL 20 MG TABLET PO SCH ×2 (08:59→21:13)
[2019-09-26] MEDS: DILTIAZEM HCL 120 MG CAP.SR.24H PO SCH (09:00)
[2019-09-26] MEDS: CLOPIDOGREL BISULFATE 75 MG TABLET PO SCH (09:00)
[2019-09-26] MEDS: FAMOTIDINE 20 MG TABLET PO SCH ×2 (09:00→21:14)
[2019-09-26] MEDS: ASPIRIN 325 MG TABLET.DR PO SCH (09:00)
[2019-09-26] MEDS: MULTIVITAMINS 1 CAP CAPSULE PO SCH (09:00)
[2019-09-26] MEDS: GABAPENTIN 300 MG CAPSULE PO SCH ×3 (09:01→16:52)
[2019-09-26] MEDS: HYDROCHLOROTHIAZIDE 25 MG TABLET PO SCH (09:01)
[2019-09-26] MEDS: AZITHROMYCIN 250 MG TABLET PO SCH (19:25)
[2019-09-26] MEDS: ROSUVASTATIN CALCIUM 20 MG TABLET PO SCH (21:13)
[2019-09-27 06:30] LABS: Hematocrit 37.9 % (37.0-47.0); Hemoglobin 11.9 gm/dL (12.5-16.0); Mean Cell Volume 88.1 fl (78-100); Mean Corpuscular Hemoglobin 27.7 pg (27-31); Mean Corpuscular Hgb Conc 31.4 g/dl (32-36); Mean Platelet Volume 10.3 fl (8-12.5); Neutrophil % 80.7 % (42-75.0); Platelet Count 227 K/mm3 (150-450); Red Cell Distribution Width 14.8 % (11.5-14.0); White Blood Count 11.2 K/mm3 (4.0-10.5)
[2019-09-27 06:33] LABS: Albumin * 2.4 gm/dl (3.4-5.0); Anion Gap 10.3 mmol/L (6.8-13.8); BUN/Creatinine Ratio 12.5 (9.0-21.6); Bilirubin, Total 0.2 mg/dL (0.0-1.1); Ca. Corrected For Albumin 10.1 mg/dL (8.4-10.2); Calcium * 9.1 mg/dL (7.9-10.9); Carbon Dioxide 28.8 mmol/L (24-32.6); Potassium 3.1 mmol/L (3.4-4.6)
[2019-09-27] MEDS: ACETAMINOPHEN 325 MG TABLET PO PRN ×2 (08:08→18:57)
[2019-09-27] MEDS: FAMOTIDINE 20 MG TABLET PO SCH ×2 (08:10→20:26)
[2019-09-27] MEDS: CLOPIDOGREL BISULFATE 75 MG TABLET PO SCH (08:10)
[2019-09-27] MEDS: MULTIVITAMINS 1 CAP CAPSULE PO SCH (08:11)
[2019-09-27] MEDS: GABAPENTIN 300 MG CAPSULE PO SCH ×3 (08:11→16:51)
[2019-09-27] MEDS: SERTRALINE HCL 100 MG TABLET PO SCH (08:11)
[2019-09-27] MEDS: ASPIRIN 325 MG TABLET.DR PO SCH (08:11)
[2019-09-27] MEDS: HYDROCHLOROTHIAZIDE 25 MG TABLET PO SCH (08:11)
[2019-09-27] MEDS: DILTIAZEM HCL 120 MG CAP.SR.24H PO SCH (08:11)
[2019-09-27] MEDS: PROPRANOLOL HCL 20 MG TABLET PO SCH ×2 (08:12→20:26)
[2019-09-27] MEDS: AZITHROMYCIN 250 MG TABLET PO SCH (08:13)
[2019-09-27] MEDS ORDERED: POTASSIUM BICARBONATE/CIT AC 25 MEQ TABLET.EFF PO ONE (08:47)
[2019-09-27] MEDS ORDERED: POTASSIUM CHLORIDE 10 MEQ TABLET.SA PO SCH (09:00)
--- NOTE | 2019-09-27 09:44 | PN ---
Subjective - Date and Time Seen Date: 09/27/19 Time: 09:43 Subjective Narrative: Patient states overall she feels much better than when she came. She states she still has a very productive cough, and shortness of breath with exertion. She is tolerating her diet well. Objective - Review of Systems Generalized/Overall Review: Denies: Chills, Fever Respiratory: Reports: Shortness of Breath Cardiac: Denies: Chest Pain Abdominal: Denies: Abdominal Pain Misc: All systems neg except as marked - Vitals Vitals: Last Vital Signs Temp 36.6 C 09/27/19 06:52 Pulse 57 L 09/27/19 08:12 Resp 17 09/27/19 06:52 BP 105/48 09/27/19 08:12 Pulse Ox 95 09/27/19 07:57 - Abnormal Lab Findings Abnormal Lab Findings: Abnormal Lab Results 09/27/19 09/27/19 Range/Units 06:17 06:17 WBC 11.2 H D (4.0-10.5) K/mm3 Hgb 11.9 L (12.5-16.0) gm/dL MCHC 31.4 L (32-36) g/dl RDW 14.8 H (11.5-14.0) % Immature Gran # (Auto) 0.05 H (0.000-0.0310) K/mm3 Neutrophils % 80.7 H (42-75.0) % Lymphocytes % 11.3 L (20-51) % Neutrophils # 9.0 H (1.3-6.0) K/mm3 Lymphocytes # 1.27 L (1.5-3.5) k/mm3 Potassium 3.1 L (3.4-4.6) mmol/L Random Glucose 112 H (70-110) mg/dL ALT 9 L (19-67) U/L Total Protein 6.0 L (6.2-8.2) gm/dL Albumin 2.4 L (3.4-5.0) gm/dl - Exam Constitutional: Present: Alert, Cooperative, Well developed, Well nourished, No distress, Elderly ENT Exam: Present: hearing grossly normal Neck: Present: non-tender, supple. Absent: lymphadenopathy (R), lymphadenopathy (L) Respiratory: Present: chest non-tender, no respiratory distress, no accessory muscle use, decreased breath sounds - Throughout all lung [place], wheezing - Mild expiratory wheeze throughout all lungs [place] Cardiovascular/Chest: Present: no edema, irregularly irregular Abdomen: Present: Normal bowel sounds, soft, nontender Extremity: Present: no pedal edema Skin Exam: Present: normal color, warm/dry Neurologic: Present: alert, normal mood/affect Appearance: Present: appropriate appearance, appropriate insight Eye contact: Present: cooperative Thoughts: Present: normal thought pattern, normal mood /affect Assessment/Plan Plan Narrative: 79-year-old female with a past medical history of atrial fibrillation, COPD, anxiety, chronic pain, alcoholism, polysubstance abuse, Parkinson's disease, peripheral polyneuropathy presents with right upper and middle lobe pneumonia. She is on day 3 of antibiotic therapy. Her white count is downtrending, she is afebrile, she is off of oxygen today. She received 40 mEq of potassium chloride yesterday but her potassium continues to be low today at 3.1. Plan #1 continue with ceftriaxone and azithromycin day 3 #2 replete potassium with potassium bicarbonate 50 mEq #3 wean off of oxygen #4 continue with home medications for comorbidities - Problems/Diagnosis (1) Right upper lobe pneumonia Problem: Acute Qualifiers: Pneumonia type: due to group B Streptococcus Qualified Code(s): J15.3 - Pneumonia due to streptococcus, group B (2) Right middle lobe pneumonia Problem: Acute Qualifiers: Pneumonia type: due to group B Streptococcus Qualified Code(s): J15.3 - Pneumonia due to streptococcus, group B (3) A-fib Problem: Chronic (4) Hypokalemia Problem: Acute (5) Chronic low back pain Problem: Chronic (6) Peripheral polyneuropathy Problem: Acute (7) COPD (chronic obstructive pulmonary disease) Problem: Acute Qualifiers: COPD type: unspecified COPD Qualified Code(s): J44.9 - Chronic obstructive pulmonary disease, unspecified (8) Parkinson disease Problem: Chronic
[2019-09-27] MEDS: ROSUVASTATIN CALCIUM 20 MG TABLET PO SCH (20:26)
[2019-09-28] MEDS: ACETAMINOPHEN 325 MG TABLET PO PRN ×2 (07:21→16:29)
[2019-09-28] MEDS: SERTRALINE HCL 100 MG TABLET PO SCH (08:20)
[2019-09-28] MEDS: CLOPIDOGREL BISULFATE 75 MG TABLET PO SCH (08:20)
[2019-09-28] MEDS: GABAPENTIN 300 MG CAPSULE PO SCH ×3 (08:20→16:29)
[2019-09-28] MEDS: HYDROCHLOROTHIAZIDE 25 MG TABLET PO SCH (08:20)
[2019-09-28] MEDS: MULTIVITAMINS 1 CAP CAPSULE PO SCH (08:20)
[2019-09-28] MEDS: DILTIAZEM HCL 120 MG CAP.SR.24H PO SCH (08:20)
[2019-09-28] MEDS: PROPRANOLOL HCL 20 MG TABLET PO SCH ×2 (08:21→20:17)
[2019-09-28] MEDS: FAMOTIDINE 20 MG TABLET PO SCH ×2 (08:21→20:17)
[2019-09-28] MEDS: AZITHROMYCIN 250 MG TABLET PO SCH (08:23)
[2019-09-28] MEDS: ASPIRIN 325 MG TABLET.DR PO SCH (08:27)
[2019-09-28] MEDS ORDERED: POTASSIUM CHLORIDE IN WATER 100 ML IV SCH (08:45)
--- NOTE | 2019-09-28 09:09 | PN ---
Subjective - Date and Time Seen Date: 09/28/19 Time: 08:50 Subjective Narrative: I still have a lingering cough but feel better Objective Objective Narrative: 79-year-old female admitted for bronchopneumonia and generalized weakness was evaluated at bedside and was found to be afebrile and in no acute distress. Px is responding favorably to treatment with IV antibx, and soft hydration. Follow labs demonstrate significant improvement of her leukocytosis, however her electrolyte imbalance persists. Px was administered Potassium replacement yesterday to address hypokalemia, we will repeat labs to reevaluate electrolytes. There has been no recurrence of fever, vitals remain stable, and her only complaint is a lingering cough. Therefore antitussives will be administered on a PRN basis. Discharge to a care facility is planned for tomorrow. - Review of Systems Generalized/Overall Review: Reports: No Symptoms Reported EENTM: Reports: No Symptoms Reported Respiratory: Reports: Cough Cardiac: Reports: No Symptoms Reported Abdominal: Reports: No Symptoms Reported Genitourinary Symptoms: Reports: No Symptoms Reported Musculoskeletal Complaints: Reports: No Symptoms Reported Neurological: Reports: No Symptoms Reported Skin: Reports: No Symptoms Reported Endocrine: Reports: No Symptoms Reported - Vitals Vitals: Last Vital Signs Temp 36.8 C 09/28/19 06:00 Pulse 63 09/28/19 08:21 Resp 17 09/28/19 06:00 BP 127/51 09/28/19 08:21 Pulse Ox 93 09/28/19 06:00 - Exam Constitutional: Present: Alert, Oriented x3, Cooperative, Well developed, Well nourished, No distress, Elderly ENT Exam: Present: normal ENT inspection, hearing grossly normal, pharynx normal, TMs normal Neck: Present: non-tender, full range of motion, supple, normal inspection, trachea midline Breasts: Present: Exam deferred Respiratory: Present: chest non-tender, crackles - Mild crackles on right lung base. 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 She skipped breakfast due to rib pain due to coughing, so she was administered pain meds and was encouraged to eat. [place] sical/occupational therapist reports that she's doing well and getting stronger. We will f/u with lab results to reeval electrolytes. - Problems/Diagnosis (1) Right upper lobe pneumonia Problem: Acute Qualifiers: Pneumonia type: due to group B Streptococcus Qualified Code(s): J15.3 - Pneumonia due to streptococcus, group B (2) Recurrent pneumonia Problem: Acute (3) Generalized weakness Problem: Acute (4) Parkinson disease Problem: Chronic (5) COPD exacerbation Problem: Acute (6) History of recurrent TIAs Problem: Chronic (7) Hypokalemia Problem: Acute
[2019-09-28 09:21] LABS: Anion Gap 15.4 mmol/L (6.8-13.8); BUN/Creatinine Ratio 10.4 (9.0-21.6); Bilirubin, Total 0.3 mg/dL (0.0-1.1); Ca. Corrected For Albumin 9.6 mg/dL (8.4-10.2); Calcium * 9.1 mg/dL (7.9-10.9); Carbon Dioxide 26.5 mmol/L (24-32.6); Potassium 3.9 mmol/L (3.4-4.6); Total Protein 6.6 gm/dL (6.2-8.2)
[2019-09-28 09:22] LABS: Hematocrit 45.8 % (37.0-47.0); Hemoglobin 14.3 gm/dL (12.5-16.0); Mean Cell Volume 88.4 fl (78-100); Mean Corpuscular Hemoglobin 27.6 pg (27-31); Mean Corpuscular Hgb Conc 31.2 g/dl (32-36); Mean Platelet Volume 9.9 fl (8-12.5); Neutrophil # 8.5 K/mm3 (1.3-6.0); Neutrophil % 82.6 % (42-75.0); Platelet Count 303 K/mm3 (150-450); Red Blood Count 5.18 M/mm3 (4.2-5.4); Red Cell Distribution Width 14.7 % (11.5-14.0); White Blood Count 10.2 K/mm3 (4.0-10.5)
[2019-09-28] MEDS: ROSUVASTATIN CALCIUM 20 MG TABLET PO SCH (20:16)
[2019-09-29] MEDS: ACETAMINOPHEN 325 MG TABLET PO PRN (03:19)
[2019-09-29] MEDS: SERTRALINE HCL 100 MG TABLET PO SCH (08:59)
[2019-09-29] MEDS: GABAPENTIN 300 MG CAPSULE PO SCH (08:59)
[2019-09-29] MEDS: CLOPIDOGREL BISULFATE 75 MG TABLET PO SCH (08:59)
[2019-09-29] MEDS: MULTIVITAMINS 1 CAP CAPSULE PO SCH (08:59)
[2019-09-29] MEDS: HYDROCHLOROTHIAZIDE 25 MG TABLET PO SCH (08:59)
--- NOTE | 2019-09-29 08:59 | DS ---
(1) Right upper lobe pneumonia Problem: Acute Qualifiers: Pneumonia type: due to group B Streptococcus Qualified Code(s): J15.3 - Pneumonia due to streptococcus, group B (2) Recurrent pneumonia Problem: Chronic (3) Generalized weakness Problem: Resolved (4) Parkinson disease Problem: Chronic (5) COPD exacerbation Problem: Resolved (6) History of recurrent TIAs Problem: Chronic (7) Hypokalemia Problem: Resolved Date of Discharge:: 09/29/19 Hospital Course: 79-year-old female admitted for right upper and middle lobe bronchopneumonia, generalized weakness, and COPD exacerbation was evaluated at bedside and was found to be afebrile and in no acute distress. Patient reports feeling much better, her cough has improved and there has been no recurrence of fever. Patient is now saturating above 94% on room air therefore no longer requires oxygen, oxygen was weaned 2 days ago and we have not had any issues with breathing. She has been treated with IV antibiotics and mild IV hydration and responded well to treatment. Leukocytosis with left shift have resolved and electrolyte imbalance have been corrected. Patient is good to be discharge to a nursing facility in [place] and will be ordered to undergo follow-up chest x-ray in 6 weeks to evaluate nodular opacities seen on chest x-ray upon admission. She is instructed to follow-up with her PCP in 1 week for reevaluation of her breathing and bronchopneumonia. Patient is also ordered to continue PT and OT at the medical facility, all necessary arrangements for safe discharge are being made. Procedures Performed: none Results and Findings: Pending Mircobiology Results 09/25/19 18:54 Blood Blood Culture - Preliminary NO GROWTH AFTER 48 HOURS 09/25/19 18:11 Blood Blood Culture - Preliminary NO GROWTH AFTER 48 HOURS Lab Pending Results 09/25/19 17:40: Influenza Type A Ag Negative, Influenza Type B Ag Negative 09/25/19 18:11: WBC 21.2 H, RBC 5.33, Hgb 14.8, Hct 45.8, MCV 85.9, MCH 27.8, MCHC 32.3, RDW 14.6 H, Plt Count 249, MPV 10.0, Immature Gran % (Auto) 0.50 H, Immature Gran # (Auto) 0.10 H, Neutrophils % 89.4 H, Lymphocytes % 5.1 L, Monocytes % 4.7, Eosinophils % 0.1, Basophils % 0.2, Nucleated RBC % 0.0, Neutrophils # 18.9 H, Lymphocytes # 1.07 L, Monocytes # 1.0, Eosinophils # 0.0, Absolute Basophils 0.1 09/25/19 18:11: Sodium 140, Plasma Sodium 140, Potassium 3.0 L, Chloride 101, Carbon Dioxide 27.8, Anion Gap 14.2 H, BUN 8, Creatinine 0.75, Est GFR (Non-Af Amer) 79 D, BUN/Creatinine Ratio 10.7, Random Glucose 114 H, Calcium 9.7, Calcium Adj for Albumin 10.0, Total Bilirubin 0.6, AST 11, ALT 12 L, Alkaline Phosphatase 102, B-Natriuretic Peptide 553 H, Total Protein 7.3, Albumin 3.2 L 09/25/19 18:11: Lactic Acid, Venous 0.9 09/26/19 07:45: WBC 19.2 H, RBC 4.95, Hgb 13.8, Hct 43.2, MCV 87.3, MCH 27.9, MCHC 31.9 L, RDW 14.9 H, Plt Count 246, MPV 9.9, Immature Gran % (Auto) 0.60 H, Immature Gran # (Auto) 0.12 H, Neutrophils % 87.7 H, Lymphocytes % 6.0 L, Monocytes % 5.0, Eosinophils % 0.4, Basophils % 0.3, Nucleated RBC % 0.0, Neutrophils # 16.9 H, Lymphocytes # 1.16 L, Monocytes # 1.0, Eosinophils # 0.1, Absolute Basophils 0.1 09/27/19 06:17: WBC 11.2 H D, RBC 4.30, Hgb 11.9 L, Hct 37.9, MCV 88.1, MCH 27.7, MCHC 31.4 L, RDW 14.8 H, Plt Count 227, MPV 10.3, Immature Gran % (Auto) 0.40, Immature Gran # (Auto) 0.05 H, Neutrophils % 80.7 H, Lymphocytes % 11.3 L, Monocytes % 5.8, Eosinophils % 1.6, Basophils % 0.2, Nucleated RBC % 0.0, Neutrophils # 9.0 H, Lymphocytes # 1.27 L, Monocytes # 0.7, Eosinophils # 0.2, Absolute Basophils 0.0 09/27/19 06:17: Sodium 138, Plasma Sodium 138, Potassium 3.1 L, Chloride 102, Carbon Dioxide 28.8, Anion Gap 10.3, BUN 8, Creatinine 0.64, Est GFR (Non-Af Amer) 95 D, BUN/Creatinine Ratio 12.5, Random Glucose 112 H, Calcium 9.1, Calcium Adj for Albumin 10.1, Total Bilirubin 0.2, AST 9, ALT 9 L, Alkaline Phosphatase 85, Total Protein 6.0 L, Albumin 2.4 L 09/28/19 09:00: WBC 10.2, RBC 5.18, Hgb 14.3, Hct 45.8, MCV 88.4, MCH 27.6, MCHC 31.2 L, RDW 14.7 H, Plt Count 303, MPV 9.9, Immature Gran % (Auto) 0.40, Immature Gran # (Auto) 0.04 H, Neutrophils % 82.6 H, Lymphocytes % 10.6 L, Monocytes % 3.9, Eosinophils % 2.2, Basophils % 0.3, Nucleated RBC % 0.0, Neutrophils # 8.5 H, Lymphocytes # 1.09 L, Monocytes # 0.4, Eosinophils # 0.2, Absolute Basophils 0.0 09/28/19 09:00: Sodium 139, Plasma Sodium 139, Potassium 3.9 D, Chloride 101, Carbon Dioxide 26.5, Anion Gap 15.4 H, BUN 7, Creatinine 0.67, Est GFR (Non-Af Amer) 90, BUN/Creatinine Ratio 10.4, Random Glucose 111 H, Calcium 9.1, Calcium Adj for Albumin 9.6, Total Bilirubin 0.3, AST 14, ALT 13 L, Alkaline Phosphatase 98, Total Protein 6.6, Albumin 3.0 L Discharge Location: [facility] Disposition: SNF Condition: Stable Face to Face Encounter completed per CMS Guidelines: No Level of Care: SNF Discharge Activity: Activity as tolerated Discharge Diet: General/regular food Senior Living Therapy: Physical Therapy, Occupation Therapy Referrals: Lucio Garza MD [Primary Care Provider] - Additional Patient Instructions (free text): To [facility] at discharge. Please fax discharge information to [facility] and call report. PT and OT to evaluate and treat. Complete Home Medications List: Complete Home Medication List: Atorvastatin Calcium [Lipitor] 40 mg PO DAILY 08/28/14 Multivitamin [Multi-Vitamin Daily] 1 each PO DAILY 08/28/14 Aspirin 325 mg PO DAILY 10/12/14 Clopidogrel Bisulfate [Plavix] 75 mg PO DAILY 10/12/14 Pantoprazole Sodium [Protonix] 40 mg PO DAILY 11/28/14 Propranolol HCl 60 mg PO BID 11/09/17 Acetaminophen [Tylenol] 650 mg PO Q4H PRN #120 tablet 11/15/17 Diltiazem HCl [Diltiazem 24Hr Cd] 120 mg PO DAILY #30 cap.er.24h 11/15/17 Gabapentin 300 mg PO TID 05/01/18 Potassium Chloride [K-Tab ER] 10 meq PO BID 05/01/18 Sertraline HCl [Zoloft] 100 mg PO DAILY 05/01/18 Hydrochlorothiazide [Hydrodiuril] 25 mg PO DAILY 09/26/19
[2019-09-29] MEDS: FAMOTIDINE 20 MG TABLET PO SCH (09:00)
[2019-09-29] MEDS: ASPIRIN 325 MG TABLET.DR PO SCH (09:00)
[2019-09-29] MEDS: DILTIAZEM HCL 120 MG CAP.SR.24H PO SCH (09:00)
[2019-09-29] MEDS: PROPRANOLOL HCL 20 MG TABLET PO SCH (09:00)
[2019-09-29] MEDS: AZITHROMYCIN 250 MG TABLET PO SCH (09:00)
[2019-09-29 11:02] VITALS: BP 126/47
== END 2019-09-29 10:30 | DRG 194 ==
LOC: MS 17:30 → ER 17:30 → MS 19:12
PROVIDERS: ADMIT Family Medicine; ATTEND Family Medicine
DX: G20 Parkinson's disease; J15.3 Pneumonia due to streptococcus, group B; E86.0 Dehydration; J44.1 Chronic obstructive pulmonary disease with (acute) exacerbation; G62.9 Polyneuropathy, unspecified; R09.02 Hypoxemia; E87.6 Hypokalemia; I48.91 Unspecified atrial fibrillation; G89.29 Other chronic pain; F17.210 Nicotine dependence, cigarettes, uncomplicated; Z86.73 Personal history of transient ischemic attack (TIA), and cerebral infarction without residual deficits
CPT/HCPCS: 36415; 71020; 71046; 80053; 83519; 83605; 83880; 85025; 87040; 87400; 87449; 93005; 94760; 96361; 96365; 96367; 97110; 97116; 97161; 97165; 97530; 97535; 99285; G0378